=== PATIENT | male | born 1940 | race Asian ===

== ENCOUNTER 2017-04-14 14:11 | Emergency (ER) | payer MEDICARE, OTHER ==
[2017-04-14 14:20] VITALS: BMI 25.7
--- NOTE | 2017-04-14 14:20 | PDOC ---
Rapid Medical Evaluation Time Seen by Provider: 04/14/17 14:15 Medical Evaluation: 04/14/17 14:16 I have performed a brief in-person evaluation of this patient. The patient presents with a chief complaint of: Cough with SOB x 1 month, not getting better with OTC meds. Denies any pmhx. No tob hx Pertinent physical exam findings:Sating 94% on RA well piper w/ clear chest/lungs I have ordered the following:Labs, CXR and EKG The patient will proceed to the ED for further evaluation.
--- NOTE | 2017-04-14 14:29 | PDOC ---
History of Present Illness - General Chief Complaint: Respiratory Stated Complaint: Blood Pressure Problem Time Seen by Provider: 04/14/17 14:15 History Source: Patient - History of Present Illness Initial Comments: 04/14/17 15:09 Patient is a 76 y.o. Grenadian speaking, LEP male with no reported PMH who presents to the ED today c/o 1 month h/o subjective fever, productive (whitish sputum) cough, pleuritic chest pain, rhinorhea as well as sore throat. Patient states he has tried OTC meds to some relief however the symptoms persisted. Patient denies any recent travel, medication changes or sick contacts. NKDA Surgical: Cholecystectomy Social: denies cigarettes, alcohol, recreational drugs PMD: None Past History - Past Medical History Allergies/Adverse Reactions: Allergies Allergy/AdvReac Type Severity Reaction Status Date / Time Penicillins Allergy Rash Verified 04/14/17 14:20 Home Medications: Ambulatory Orders Azithromycin [Zithromax 250mg Tablets -] 250 mg PO DAILY 4 Days #4 tablet COPD: No Other medical history: NONE - Surgical History Cholecystectomy: Yes - Suicide/Smoking/Psychosocial Hx Smoking History: Never smoked Have you smoked in the past 12 months: Yes Information on smoking cessation initiated: No Hx Alcohol Use: No Drug/Substance Use Hx: No Substance Use Type: None Review of Systems - Review of Systems Constitutional: Yes: Chills, Fever Respiratory: Yes: Cough (productive whitish sputum) Cardiac (ROS): Yes: Chest Tightness. No: Lightheadedness, Palpitations ABD/GI: No: Constipated, Diarrhea, Nausea, Vomiting : No: Burning, Dysuria All Other Systems: Reviewed and Negative *Physical Exam - Vital Signs Last Vital Signs Temp Pulse Resp BP Pulse Ox 98.2 F 75 20 157/96 94 L 04/14/17 14:14 04/14/17 14:14 04/14/17 14:14 04/14/17 14:14 04/14/17 14:14 - Physical Exam General Appearance: Yes: Nourished, Appropriately Dressed HEENT: positive: EOMI, YAMILKA. negative: Pharyngeal Erythema, Tonsillar Exudate, Tonsillar Erythema Neck: positive: Trachea midline, Supple Respiratory/Chest: positive: Lungs Clear, Normal Breath Sounds Cardiovascular: positive: S1, S2. negative: Edema, JVD, Murmur Gastrointestinal/Abdominal: positive: Normal Bowel Sounds, Soft. negative: Tenderness, Hernia, Mass, Hepatomegaly Extremity: positive: Normal Capillary Refill, Normal Inspection Integumentary: positive: Normal Color, Dry, Warm Neurologic: positive: marketing director II-XII NML intact, Fully Oriented, Alert ED Treatment Course - LABORATORY CBC & Chemistry Diagram: 04/14/17 14:55 04/14/17 14:55 Medical Decision Making - Medical Decision Making 04/14/17 15:39 Patient is a 76 y.o. male who presents with 1 month h/o viral URI symptoms and intermittently productive cough. Initial DDx is for pneumonia (however no self- reported dyspnea) vs. Influenza vs. URI; low clinical suspicion for TB given no incarceration, no h/o of night sweats, weight loss PLAN 1. CBC, CMP 2. Strep Pharyngitis, Influenza 3. CXR 04/14/17 15:40 Influenza, Strep negative.Wet read of CXR shows possible soft tissue L sided mass at the level of the diaphragm as well as possible L parasternal soft tissue mass. Given patient's h/o 1 month SiSx as well childhood h/o possible international exposures (patient born in [place], lived in [facility] and [place] emigrating to the [place] in ) CT Scan ordered to evaluated for possible malignancy. On repeat exam, patient notes that he has not smoked since 1986, however previously smoked 2 ppd/5 years. 04/14/17 19:20 CT Scan shows COPD changes as well as scarring and possible nodule 1.2 cm width on L side (noted to be possible soft tissue mass on CXR). Patient to be treated for mild COPD exacerbation (5 Days Azithromycin, no steroids) and referred to Pulmonology (Dr. Shen) and PCP ([facility], Dr. Modesto Stafford) . Patient and patient's @ bedside counseled on proper follow-up care in Gren[place]. At time of discharge patient improved, ambulatory and understood discharge instructions. *DC/Admit/Observation/Transfer Diagnosis at time of Disposition: COPD exacerbation - Discharge Dispostion Disposition: HOME Condition at time of disposition: Good Admit: No - Prescriptions Prescriptions: Azithromycin [Zithromax 250mg Tablets -] 250 mg PO DAILY 4 Days #4 tablet - Referrals Referrals: Modesto Stafford MD [Staff Physician] - Dar Shen MD [Staff Physician] - - Patient Instructions Printed Discharge Instructions: DI for Chronic Obstructive Pulmonary Disease Additional Instructions: Please make an appointment for follow-up evaluation both with Dr. Rivera Salvador for primary care as well as a pulmonary lung doctor, Dr. Shen. Please return to the Emergency Department for any worsening or concerning symptoms. - Post Discharge Activity
[2017-04-14 15:22] LABS: BASOPHIL 0.8 % (0-2.0); EOSINOPHIL 1.1 % (0-4.5); MCH 31.6 pg (25.7-33.7); MCHC 33.2 g/dl (32.0-35.9); MEAN CELL VOLUME 95.3 fl (80-96); MEAN PLT VOLUME 8.3 fl (7.5-11.1); NEUTROPHILS 61.4 % (42.8-82.8); PLATELET COUNT 223 K/MM3 (134-434); RDW 12.9 % (11.9-15.9); WHITE BLOOD COUNT 8.3 K/mm3 (4.0-10.0)
[2017-04-14 15:31] LABS: ALBUMIN 3.4 g/dl (3.4-5.0); ANION GAP 8 (8-16); CALCIUM 8.4 mg/dL (8.5-10.1); CO2 26 mmol/L (21-32); CREATININE 1.1 mg/dL (0.7-1.3); GLUCOSE,RANDOM 123 mg/dL (74-106); SGOT/AST 13 U/L (15-37); SGPT/ALT 22 U/L (12-78)
[2017-04-14 15:35] LABS: ALK PHOS 85 U/L (45-117); BILIRUBIN,TOTAL 0.5 mg/dL (0.2-1.0); CPK 65 IU/L (39-308); TOT PROT 7.8 g/dl (6.4-8.2); TROPONIN I < 0.02 ng/ml (0.00-0.05)
--- NOTE | 2017-04-14 15:45 | PDOC ---
Attending Attestation - HPI HPI: 04/14/17 16:41 Pt is a 76 yo M with no PMHx who presents to the ED with dyspnea and cough for the past month. Patient reports URI symptoms including clear rhinorhea, sore throat and subjective fevers. - Medical Decision Making 04/14/17 16:44 Documentation prepared by Keren Freeman, acting as medical office technologist for Brendan Damon MD <Keren Freeman - Last Filed: 04/14/17 18:29> - Resident Resident Name: Triny Iniguez - ED Attending Attestation I have performed the following: I have examined & evaluated the patient, The case was reviewed & discussed with the resident, I agree w/resident's findings & plan, Exceptions are as noted - Physicial Exam PE: 04/14/17 19:19 Patient is awake and alert, afebrile, with oxygen saturation of 98% room air ( initial pulse oximeter was 94 in triage); nc, atr cta rrr No lower extremity edema - Medical Decision Making 04/14/17 19:19 Patient is a well-appearing 76-year-old male with history of smoking who presents to the ER with with intermittent cough productive of white sputum for the past month, nasal congestion. CT of chest shows bibasilar scarring, centrilobular emphysema, and the a pulmonary nodule measuring 1.2 cm which will require follow-up. We'll administer Zithromax for mild COPD exacerbation that does not require steroids at this time. Will discharge with pulmonary follow-up for evaluation of the pulmonary nodule. <Brendan Damon - Last Filed: 04/14/17 19:21>
[2017-04-14 16:46] LABS: URINE APPEARANCE CLEAR; URINE BILIRUBIN NEGATIVE (NEGATIVE); URINE BLOOD 1+ (NEGATIVE); URINE COLOR COLORLESS; URINE GLUCOSE (UA) NEGATIVE (NEGATIVE); URINE KETONE NEGATIVE (NEGATIVE); URINE NITRITE NEGATIVE (NEGATIVE); URINE PROTEIN NEGATIVE (NEGATIVE); URINE UROBILINOGEN NEGATIVE mg/dL (0.2-1.0)
[2017-04-14 16:58] LABS: URINE RBC < 1
[2017-04-14] MEDS ORDERED: AZITHROMYCIN 250 MG TABLET PO ONE (19:17)
[2017-04-14] MEDS ORDERED: AZITHROMYCIN 500 MG TABLET ONE (19:29)
[2017-04-14 19:54] VITALS: BP 146/95; PULSE 85; TEMP 98
[2017-04-14 21:43] LABS: URINE LEUK ESTERASE Negative (NEGATIVE)
--- NOTE | 2017-04-15 12:24 | EKG ---
Test Reason : Blood Pressure : / mmHG Vent. Rate : 067 BPM Atrial Rate : 067 BPM P-R Int : 166 ms QRS Dur : 084 ms QT Int : 376 ms P-R-T Axes : 038 001 042 degrees QTc Int : 397 ms NORMAL SINUS RHYTHM NORMAL ECG WHEN COMPARED WITH ECG OF 26-OCT-2006 17:51, NO SIGNIFICANT CHANGE WAS FOUND Confirmed by CYNTHIA DYKES MD ([id number]) on 04/15/2017 12:24:24 PM Referred By: Confirmed By:CYNTHIA DYKES MD
== END 2017-04-14 19:54 | disposition home or self-care (01) ==
LOC: JER 14:11
DX: F17.210 Nicotine dependence, cigarettes, uncomplicated (principal)
CPT/HCPCS: 36415; 71020-TC; 71250-TC; 80053; 81003; 81015; 82550; 84484; 85025; 87070; 87430; 87804; 93005; 93010; 99284-25

== ENCOUNTER 2017-08-28 14:05 | Emergency (ER) | payer MEDICARE ==
[2017-08-28 14:15] VITALS: BP 137/72; PULSE 80; TEMP 98.1; BMI 26.1
[2017-08-28] MEDS ORDERED: ALBUTEROL SO4 2.5/IPRATROPIUM 0.5 INH SOL 3 ML VIAL.NEB. NEB ONE ×2 (14:49→14:50)
--- NOTE | 2017-08-28 14:59 | PDOC ---
History of Present Illness - General Chief Complaint: Respiratory Stated Complaint: COLD SYMPTOMS Time Seen by Provider: 08/28/17 14:38 History Source: Patient - History of Present Illness Initial Comments: 08/28/17 14:52 Patient is a 76M with a history of cholecystectomy here today complaining of 1.5 weeks of cough, congestion, and runny nose. He states that he has some chest pain and shortness of breath that are caused by the cough. He endorses chills, denies fevers. He endorses diffuse tingling pain along his entire body. Denies history of blood clots, leg swelling. He says that he has a sick contact in his household. He states that he both got a flu shot and pneumonia shot this year. PCP: Dr Perla Duncan. Past History - Past Medical History Allergies/Adverse Reactions: Allergies Allergy/AdvReac Type Severity Reaction Status Date / Time Penicillins Allergy Rash Verified 08/28/17 14:15 Home Medications: Ambulatory Orders Azithromycin [Zithromax 250mg Tablets -] 250 mg PO DAILY 4 Days #4 tablet Albuterol Sulfate Inhaler - [Ventolin Hfa Inhaler -] 1 - 2 inh PO QID PRN #1 inhaler 08/28/17 Azithromycin [Zithromax 250mg Tablets -] 250 mg PO DAILY #4 tablet 08/28/17 predniSONE [Deltasone -] 40 mg PO DAILY #3 tablet 08/28/17 COPD: No - Surgical History Cholecystectomy: Yes - Suicide/Smoking/Psychosocial Hx Smoking History: Never smoked Have you smoked in the past 12 months: Yes Hx Alcohol Use: No Drug/Substance Use Hx: No Substance Use Type: None Review of Systems - Review of Systems Comments:: 08/28/17 14:56 GENERAL/CONSTITUTIONAL: No fever. Positive for chills. HEAD, EYES, EARS, NOSE AND THROAT: No change in vision. No sore throat. CARDIOVASCULAR: Positive for chest pain and shortness of breath RESPIRATORY: Positive for cough, negative for hemoptysis. GASTROINTESTINAL: No nausea, vomiting, diarrhea or constipation. GENITOURINARY: No dysuria, frequency, or change in urination. MUSCULOSKELETAL: Positive for bodyaches. No neck or back pain. SKIN: No rash NEUROLOGIC: No headache, vertigo, loss of consciousness, or change in strength/ sensation. ENDOCRINE: No increased thirst. No abnormal weight change HEMATOLOGIC/LYMPHATIC: No anemia, easy bleeding, or history of blood clots. ALLERGIC/IMMUNOLOGIC: No hives or skin allergy. *Physical Exam - Vital Signs Last Vital Signs Temp Pulse Resp BP Pulse Ox 98.1 F 80 18 137/72 99 08/28/17 14:12 08/28/17 14:12 08/28/17 14:12 08/28/17 14:12 08/28/17 14:12 - Physical Exam Comments: 08/28/17 14:57 GENERAL: Awake, alert, and fully oriented, in no acute distress HEAD: No signs of trauma, normocephalic, atraumatic EYES: PERRLA, EOMI, sclera anicteric, conjunctiva clear ENT: Auricles normal inspection, hearing grossly normal, nares patent, oropharynx clear without exudates. Moist mucosa NECK: Normal ROM, supple, no lymphadenopathy, JVD, or masses LUNGS: No distress, speaks full sentences, scattered wheezes bilaterally HEART: Regular rate and rhythm, normal S1 and S2, no murmurs, rubs or gallops, peripheral pulses normal and equal bilaterally. ABDOMEN: Soft, nontender, normoactive bowel sounds. No guarding, no rebound. No masses EXTREMITIES: Normal inspection, Normal range of motion, no edema. No clubbing or cyanosis. NEUROLOGICAL: Cranial nerves II through XII grossly intact. Normal speech, normal gait, no focal sensorimotor deficits SKIN: Warm, Dry, normal turgor, no rashes or lesions noted. ED Treatment Course - LABORATORY CBC & Chemistry Diagram: 08/28/17 15:00 08/28/17 14:49 - RADIOLOGY Radiology Studies Ordered: Category Date Time Status CHEST X-RAY PORTABLE* [RAD] Stat Radiology 08/28/17 14:49 Ordered Medical Decision Making - Medical Decision Making 08/28/17 14:59 Patient is 76M with no significant medical history here today complaining of congestion, cough, chest pain. Vital signs stable and normal. Record review shows CT chest with centrilobar emphysema. Bilateral wheezing on exam. DDx includes, but is not limited to: bronchits, copd exacerbation, pneumonia, acs, arrhythmia. Will evaluate with cbc, cmp, pt/inr, mg, trop, ekg, cxr. EKG shows normal sinus rhythm with rate of 84. No st elevation/depression. No significant t wave abnormalities. Q waves in III and aVF. No significant t wave abnormalities. 08/28/17 16:07 CXR shows chronic inflammation at the bases, likely atelectasis. Laboratory Tests 08/28/17 08/28/17 08/28/17 14:49 14:49 15:00 WBC 4.7 D Hgb 14.1 Hct 41.8 Plt Count 172 D INR 0.98 BUN 17 D Creatinine 1.1 Troponin I < 0.02 CBC normal. INR normal. CMP reassuring. Troponin undetectable. Believe patient has bronchitis, will treat with azithro and prednisone. Will send home with albuterol inhaler as well. Will instruct to follow up with PCP. Patient moving air better on exam. Flu negative *DC/Admit/Observation/Transfer Diagnosis at time of Disposition: Bronchitis - Discharge Dispostion Disposition: HOME Condition at time of disposition: Good Admit: No - Prescriptions Prescriptions: Albuterol Sulfate Inhaler - [Ventolin Hfa Inhaler -] 1 - 2 inh PO QID PRN #1 inhaler PRN Reason: Shortness Of Breath Azithromycin [Zithromax 250mg Tablets -] 250 mg PO DAILY #4 tablet predniSONE [Deltasone -] 40 mg PO DAILY #3 tablet - Referrals Referrals: Perla Stone MD [Primary Care Provider] - - Patient Instructions Printed Discharge Instructions: DI for Acute Bronchitis Additional Instructions: You were seen in the ED today and found to have bronchitis. Please return if you have any new, worsening or concerning symptoms. You were given the first dose of your antibiotic and steroid today in the ER. Your next doses will be due to take tomorrow. Please picker tender helper these medications from your pharmacy. You were sent home today with a prescription for an inhaler. Please use this if you start feeling short of breath. If this does alleviate your symptoms, please return to the Emergency Department. Print Language: VIET[place]ESE - Post Discharge Activity
--- NOTE | 2017-08-28 15:05 | PDOC ---
Attending Attestation - Resident Resident Name: GabewaleToro - ED Attending Attestation I have performed the following: I have examined & evaluated the patient, The case was reviewed & discussed with the resident, I agree w/resident's findings & plan, Exceptions are as noted - HPI HPI: 08/28/17 15:04 76 yo M presenting to the ER with upper respiratory complaints Patient reports he has no past medical history. He does have prior CT findings of COPD. Patient reports cough, shortness of breath. (+) Sputum production. No fever (+) chills No chest pain. 08/28/17 16:41 - Physicial Exam PE: 08/28/17 16:41 Please note: exam is s/p neb x 1 GENERAL: The patient is in no acute distress. HEAD: Normal EYES: PERRLA, EOMI, sclera anicteric, conjunctiva clear. ENT: Ears normal, nares patent, oropharynx clear without exudates. Moist mucous membranes. NECK: Normal range of motion, supple without lymphadenopathy, JVD, or masses. LUNGS: Breath sounds equal, clear to auscultation bilaterally HEART:Regular rate and rhythm, normal S1 and S2 without murmur, rub or gallop. ABDOMEN: Soft, nontender, normoactive bowel sounds. EXTREMITIES: Normal range of motion, no edema. NEUROLOGICAL: Cranial nerves II through XII grossly intact. Normal speech. No focal neurological deficits. - Medical Decision Making 08/28/17 16:42 Laboratory Tests 08/28/17 08/28/17 08/28/17 14:49 14:49 15:00 WBC 4.7 D Hgb 14.1 Hct 41.8 Plt Count 172 D Neutrophils % 42.4 L D Lymphocytes % 43.0 H D INR 0.98 Alkaline Phosphatase 69 Troponin I < 0.02 Chest x-ray preliminarily read by me reveals right basilar infiltrate. Will discharge to home on: Azithromycin, prednisone, albuterol. Patient to follow up with primary care physician. Clinical impression: COPD exacerbation, initial presentation Bronchitis, and initial presentation Upper respiratory infection, initial presentation
[2017-08-28 15:12] LABS: BASO % 0.6 % (0-2.0); EOS % 0.7 % (0-4.5); HEMATOCRIT 41.8 % (35.4-49); HEMOGLOBIN 14.1 GM/dL (11.7-16.9); MCH 32.6 pg (25.7-33.7); MCHC 33.8 g/dl (32.0-35.9); MEAN CELL VOLUME 96.4 fl (80-96); MEAN PLT VOLUME 9.1 fl (7.5-11.1); MONO % 13.3 % (3.8-10.2); NEUT % 42.4 % (42.8-82.8); PLATELET COUNT 172 K/MM3 (134-434); RBC 4.34 M/mm3 (4.00-5.60); RDW 13.1 % (11.9-15.9); WHITE BLOOD COUNT 4.7 K/mm3 (4.0-10.0)
[2017-08-28 15:44] LABS: INR 0.98 (0.82-1.09); PROTHROMBIN TIME (PATIENT) 11.1 SEC (9.98-11.88)
[2017-08-28 15:51] LABS: ALBUMIN 3.4 g/dl (3.4-5.0); ANION GAP 7 (8-16); BILIRUBIN,TOTAL 0.4 mg/dL (0.2-1.0); BLOOD UREA NITROGEN 17 mg/dL (7-18); CHLORIDE 106 mmol/L (98-107); CO2 24 mmol/L (21-32); CREATININE 1.1 mg/dL (0.7-1.3); GLUCOSE,RANDOM 88 mg/dL (74-106); SGPT/ALT 27 U/L (12-78); SODIUM 137 mmol/L (136-145)
[2017-08-28 15:54] LABS: ALK PHOS 69 U/L (45-117); TOT PROT 7.4 g/dl (6.4-8.2)
[2017-08-28 15:55] LABS: MAGNESIUM 2.2 mg/dL (1.8-2.4); POTASSIUM 4.1 mmol/L (3.5-5.1); SGOT/AST 24 U/L (15-37)
[2017-08-28] MEDS ORDERED: AZITHROMYCIN 500 MG TABLET PO ONE (16:10)
[2017-08-28] MEDS ORDERED: predniSONE 20 MG TABLET (UD) PO ONE (16:13)
[2017-08-28] MEDS ORDERED: AZITHROMYCIN 500 MG TABLET ONE (16:15)
[2017-08-28] MEDS ORDERED: predniSONE 20 MG TABLET (UD) ONE (16:25)
--- NOTE | 2017-08-29 16:13 | EKG ---
Test Reason : Blood Pressure : / mmHG Vent. Rate : 084 BPM Atrial Rate : 084 BPM P-R Int : 160 ms QRS Dur : 078 ms QT Int : 368 ms P-R-T Axes : 039 -09 036 degrees QTc Int : 434 ms NORMAL SINUS RHYTHM INFERIOR INFARCT , AGE UNDETERMINED NONSPECIFIC ST ABNORMALITY ABNORMAL ECG Confirmed by MD EMILY, CARIDAD ([id number]) on 08/29/2017 4:13:07 PM Referred By: Confirmed By:CARIDAD DIAZ MD
== END 2017-08-28 16:25 | disposition home or self-care (01) ==
LOC: JER 14:05
PROC: 3E0F7GC Introduction of Other Therapeutic Substance into Respiratory Tract, Via Natural or Artificial Opening (ICD-10-PCS; principal; 2017-08-28)
DX: J40 Bronchitis, not specified as acute or chronic (principal); Z90.49 Acquired absence of other specified parts of digestive tract
CPT/HCPCS: 36415; 71045-TC-FY; 80053; 82550; 83735; 84484; 85025; 85610; 87804; 93005; 93010; 94640; 99283-25

== ENCOUNTER 2019-05-09 14:53 | Emergency (ER) | payer MEDICARE, OTHER ==
[2019-05-09 15:26] VITALS: BMI 30.9
--- NOTE | 2019-05-09 15:43 | PDOC ---
History of Present Illness - General Chief Complaint: Weakness Stated Complaint: Blood Pressure Problem Time Seen by Provider: 05/09/19 15:14 History Source: Patient ( ) Exam Limitations: Language Barrier (Health Services Coordinator #[id number]) - History of Present Illness Initial Comments: 05/09/19 15:59 78M with no PMH (on Spiriva) who presents to the ER after having an episode of weakness and lightheadedness. The patient states that he began to feel generalized weakness and felt like his legs were giving out. He sat on the toilet and had 2 episodes of nonbloody, watery diarrhea. He then states that he felt very lightheaded and lost his vision for 20-30 seconds, felt very lightheaded, and was unable to stand up. During this time he denies any chest tightness, shortness of breath, nausea, vomiting, numbness, or tingling. He states that he's been "fighting a cold" for the last week. He denies any current symptoms and states that all of his symptoms had resolved by the time EMS arrived. Past History - Past Medical History Allergies/Adverse Reactions: Allergies Allergy/AdvReac Type Severity Reaction Status Date / Time Penicillins Allergy Rash Verified 05/09/19 15:28 Asthma: Yes COPD: No - Surgical History Cholecystectomy: Yes - Psycho Social/Smoking Cessation Hx Smoking History: Never smoked Have you smoked in the past 12 months: No Information on smoking cessation initiated: No Hx Alcohol Use: No Drug/Substance Use Hx: No Substance Use Type: None Review of Systems - Review of Systems Able to Perform ROS?: Yes Comments:: 05/09/19 16:09 GENERAL/CONSTITUTIONAL: + for weakness. No fever or chills. HEAD, EYES, EARS, NOSE AND THROAT: No change in vision. No ear pain or discharge. No sore throat. CARDIOVASCULAR: + for lightheadedness. No chest pain or palpitations. RESPIRATORY: No cough, wheezing, shortness of breath, or hemoptysis. GASTROINTESTINAL: No abdominal pain, nausea, vomiting, diarrhea, or constipation. GENITOURINARY: No dysuria, frequency, hematuria, or change in urination. MUSCULOSKELETAL: No joint or muscle swelling or pain. No neck or back pain. SKIN: No rash or lesions. NEUROLOGIC: + for loss of vision. No headache, numbness, tingling, focal weakness, loss of consciousness, or change in strength/sensation. Is the patient limited Tuvaluan proficient: No *Physical Exam - Vital Signs Last Vital Signs Temp Pulse Resp BP Pulse Ox 98.7 F 73 17 111/55 L 90 L 05/09/19 15:16 05/09/19 15:16 05/09/19 15:16 05/09/19 15:16 05/09/19 15:16 - Physical Exam 05/09/19 16:12 GENERAL: Well developed, well nourished. Awake and alert. No acute distress. HEENT: Normocephalic, atraumatic. Hearing grossly normal. Moist mucous membranes. PERRLA, EOMI. No conjunctival pallor. Sclera are non-icteric. NECK: Supple. Full ROM. No JVD. Carotid pulses 2+ and symmetric, without bruits. No thyromegaly. No lymphadenopathy. CARDIOVASCULAR: Regular rate and rhythm. No murmurs, rubs, or gallops. PULMONARY: No evidence of respiratory distress. Lungs clear to auscultation bilaterally. No wheezing, rales or rhonchi. ABDOMINAL: Soft. Non-tender. Non-distended. No rebound or guarding. MUSCULOSKELETAL: Normal range of motion at all joints. No bony deformities or tenderness. EXTREMITIES: No cyanosis. No clubbing. No edema. No calf tenderness or swelling. SKIN: Warm and dry. Normal capillary refill. No rashes. No jaundice. NEUROLOGICAL: Alert, awake, appropriate. Cranial nerves 2-12 intact. No deficits to light touch and temperature in face, upper extremities and lower extremities. 5/5 strength in deltoids, biceps, triceps, quadriceps, hamstrings, and gastrocnemius. Normal speech. Gait is normal without ataxia. PSYCHIATRIC: Cooperative. Good eye contact. Appropriate mood and affect. ED Treatment Course - LABORATORY CBC & Chemistry Diagram: 05/09/19 15:40 05/09/19 15:40 - RADIOLOGY Radiology Studies Ordered: Category Date Time Status CHEST X-RAY PORTABLE* [RAD] Stat Radiology 05/09/19 15:14 Ordered Medical Decision Making - Medical Decision Making 05/09/19 16:12 78M with no PMH who presents to the ER with possible syncope vs near syncope. EKG shows trigeminy w/o priors. Will obtain labs, CXR, and admit. Pt endorsed to Dr. Perla Stone for admission. Discharge - Discharge Information Problems reviewed: Yes Clinical Impression/Diagnosis: Lightheaded, Weakness Condition: Guarded - Admission Yes - Follow up/Referral Referrals: Perla Stone MD [Primary Care Provider] - - Patient Discharge Instructions - Post Discharge Activity
[2019-05-09 15:56] LABS: BASO % 0.6 % (0-2.0); EOS % 1.5 % (0-4.5); HEMATOCRIT 38.4 % (35.4-49); HEMOGLOBIN 12.4 GM/dL (11.7-16.9); LYMPH % 15.9 % (8-40); MCH 31.9 pg (25.7-33.7); MCHC 32.4 g/dl (32.0-35.9); MEAN CELL VOLUME 98.6 fl (80-96); MONO % 4.3 % (3.8-10.2); NEUT % 77.7 % (42.8-82.8); PLATELET COUNT 191 K/MM3 (134-434); RBC 3.89 M/mm3 (4.00-5.60); RDW 13.4 % (11.9-15.9); WHITE BLOOD COUNT 9.8 K/mm3 (4.0-10.0)
--- NOTE | 2019-05-09 16:03 | PDOC ---
Attending Attestation - Resident Resident Name: AlexdarylRobby - ED Attending Attestation I have performed the following: I have examined & evaluated the patient, The case was reviewed & discussed with the resident, I agree w/resident's findings & plan - HPI HPI: 05/09/19 15:58 Healthy 78-year-old male high functioning with no significant past medical history presents brought in by ambulance with after episode of lightheadedness and near syncope. Patient was in his usual state of health, had returned from being out with his daughter for most of the day, was cooking then felt sudden onset of generalized lightheadedness and generalized weakness with some nausea, denies any chest pain or palpitations or abdominal pain. The patient sat down but the symptoms persisted for about 5 minutes, which prompted EMS activation. During the episode, states patient was pale and had low blood pressure, upon EMS arrival patient was asymptomatic with normal blood pressure, but irregular heartbeat on monitoring. Patient now completely asymptomatic, denies any recent exertional intolerance, denies any infectious symptoms (other than mild URI for which he took cepacol drops) or dehydration symptoms, denies any history of lightheadedness or syncope. - Physicial Exam PE: 05/09/19 15:59 Vitals as noted, heart rate in the 70s with normal blood pressure, O2 sat 97% on room air Patient is alert seated in stretcher, speaking full sentences, no acute distress Neurological exam is nonfocal Heart is regular to auscultation at this time, no audible murmur Lungs are clear Abdomen benign No edema - Medical Decision Making 05/09/19 16:00 78-year-old male with sudden onset lightheadedness and near syncope, resolved. Hemodynamically stable here but with trigeminal rhythm in route with EMS, denies any specific cardiopulmonary or neurological complaints. Presentation could be consistent with primary arrhythmia versus ACS versus vasovagal episode. There was confounding history of patient having this episode following diarrhea, however he denied any diarrhea or abdominal complaints on my history. Placed on monitor, stat EKG noted sinus rhythm with PVCs in trigeminal pattern, in sinus rhythm on my examination on monitor IV fluids Chest x-ray Admit for tele/echo - PCP Dr. Chela Stone Heart Score/ECG Review #1 ECG reviewed & interpreted by me at: 15:03 General ECG Interpretation: Sinus Rhythm (with PVCs), Normal Rate (75), Normal Intervals (qtc 446), No acute ischemic changes
[2019-05-09 16:11] LABS: INR 1.02 (0.83-1.09)
[2019-05-09 16:13] LABS: ACTIVATED PTT 26.1 SECONDS (25.2-36.5)
[2019-05-09 16:48] LABS: ALBUMIN 3.2 g/dl (3.4-5.0); BILIRUBIN,TOTAL 0.8 mg/dL (0.2-1); BLOOD UREA NITROGEN 16.6 mg/dL (7-18); CALCIUM 8.3 mg/dL (8.5-10.1); CREATININE 1.3 mg/dL (0.55-1.3); POTASSIUM 4.2 mmol/L (3.5-5.1); TOT PROT 6.4 g/dl (6.4-8.2)
[2019-05-09] MEDS: SODIUM CHLORIDE 1,000 ML IV SCH (19:48)
[2019-05-10] MEDS ORDERED: LEVOTHYROXINE NA 25 MCG TABLET (FP) ONE (06:57)
[2019-05-10 07:39] LABS: BASO % 0.6 % (0-2.0); EOS % 4.8 % (0-4.5); HEMATOCRIT 37.3 % (35.4-49); HEMOGLOBIN 12.6 GM/dL (11.7-16.9); LYMPH % 32.8 % (8-40); MCH 32.8 pg (25.7-33.7); MCHC 33.7 g/dl (32.0-35.9); MEAN CELL VOLUME 97.2 fl (80-96); MEAN PLT VOLUME 8.9 fl (7.5-11.1); MONO % 7.1 % (3.8-10.2); NEUT % 54.7 % (42.8-82.8); PLATELET COUNT 207 K/MM3 (134-434); RBC 3.84 M/mm3 (4.00-5.60); RDW 13.3 % (11.9-15.9); WHITE BLOOD COUNT 5.8 K/mm3 (4.0-10.0)
[2019-05-10 08:20] LABS: ALBUMIN 3.2 g/dl (3.4-5.0); BILIRUBIN,TOTAL 0.7 mg/dL (0.2-1); BLOOD UREA NITROGEN 17.4 mg/dL (7-18); CALCIUM 8.4 mg/dL (8.5-10.1); CREATININE 1.2 mg/dL (0.55-1.3); POTASSIUM 4.2 mmol/L (3.5-5.1); TOT PROT 6.5 g/dl (6.4-8.2)
--- NOTE | 2019-05-10 09:10 | CON.CARD ---
Consult Consult Specialty:: cardio - History of Present Illness Chief Complaint: near syncope History of Present Illness: 78-year-old male here with lightheadedness. no significant past medical history. had an episode of lightheadedness and near syncope. Patient returned from being out with his daughter for most of the day, was cooking then felt sudden onset of generalized lightheadedness and generalized weakness with some nausea. The patient sat down but the symptoms persisted for about 5 minutes, which prompted EMS activation. During the episode, states patient was pale and reportedly measured low blood pressure. upon EMS arrival patient was asymptomatic with normal blood pressure, but irregular heartbeat on monitoring. pt dutch is good: states he was cooking at around 2:30 pm yest. HAD NOT EATEN ANYTHING ALL DAY UP UNTIL THEN. began to feel very dizzy with feeling of coldness thru his body. no other associated neuro deficits like weakness/numbness, impaired speech. no cp, sob, palpitations associated. walks ad gallo at baseline including frequent stairs--no cp or sob room air sat 90% in ER, normal BP/HR. CT chest no PE, + moderate copd changes carotid dopplers non-obstructive, CT head no acute pathology labs unremarkable - Alcohol/Substance Use Hx Alcohol Use: No - Smoking History Smoking history: Never smoked Have you smoked in the past 12 months: No Home Medications - Allergies Allergies/Adverse Reactions: Allergies Allergy/AdvReac Type Severity Reaction Status Date / Time Penicillins Allergy Rash Verified 05/09/19 15:28 - Home Medications Home Medications: Ambulatory Orders Tiotropium [place] [Spiriva] 18 mcg IH DAILY 05/09/19 Family Medical History Family History: Denies (no known cmp) Review of Systems - Review of Systems Constitutional: denies: Chills, Fever Eyes: denies: Eye Pain HENT: denies: Nasal Congestion Neck: denies: Stiffness Cardiovascular: denies: Palpitations Respiratory: denies: Orthopnea, PND Gastrointestinal: denies: Diarrhea, Rectal Bleeding Genitourinary: denies: Burning, Hematuria Musculoskeletal: denies: Muscle Pain Integumentary: denies: Rash Neurological: denies: Numbness, Seizure, Syncope Endocrine: denies: Excessive Sweating Hematology/Lymphatic: denies: Excessive Bleeding Vital Signs: Vital Signs Temperature 98.1 F 05/10/19 07:30 Pulse Rate 55 L 05/10/19 07:30 Respiratory Rate 17 05/10/19 07:30 Blood Pressure 148/80 05/10/19 07:30 O2 Sat by Pulse Oximetry (%) 96 05/10/19 07:30 Constitutional: Yes: Well Nourished, No Distress Eyes: No: Sclera Icterus HENT: No: Nasal Congestion Neck: No: Decreased ROM Respiratory: Yes: CTA Bilaterally. No: Accessory Muscle Use, Rales, Wheezes Gastrointestinal: Yes: Normal Bowel Sounds. No: Distention, Hepatomegaly, Palpable Mass, Tenderness Cardiovascular: Yes: Regular Rate and Rhythm JVD: No Carotid Bruit: No PMI: Non-Displaced Heart Sounds: Yes: S1, S2. No: Gallop Murmur: No: Systolic Murmur, Diastolic Murmur Musculoskeletal: Yes: Other (No kyphosis) Extremities: No: Cool, Cyanosis Edema: No Peripheral Pulses: 2+ Left Carotid, 2+ Right Carotid, 2+ Left Doralis Pedis, 2+ Right Dorsalis Pedis Integumentary: No: Jaundice Neurological: Yes: Alert, Oriented (x3) Psychiatric: No: Agitated - Other Data Labs, Other Data: CBC, BMP 05/10/19 05:40 05/10/19 05:40 INR, PTT INR 1.02 (0.83-1.09) 05/09/19 15:40 Troponin, BNP 05/09/19 15:40 Troponin I < 0.02 Troponin, BNP 05/09/19 15:40 Troponin I < 0.02 Assessment/Plan ECG: NSR/ventricular trigeminy, normal intervals, no q waves or ST-T abnormalities. CT chest: no acute pathology tele in ER: NSR, PVCs. no VT/bradyarrhythmia near-syncope: -history suggestive of vasovagal episode (fasting all day until events in mid afternoon, assctd wave of coldness thru body, with GI sx's). -no angina sx's. ECG non-ischemic. trop neg--f/u rpt value -PVCs on ECG noted--check echo, stress echo given pts age and RFs for cv disease -monitor tele while in ER -if echo and stress normal, then the dx of vasovagal event is nearly certain and he can be discharged with outpt f/u with us COPD: -findings on CT scan noted -sat borderline line on RA initially here -per primary team
--- NOTE | 2019-05-10 10:25 | EKG ---
Test Reason : Blood Pressure : / mmHG Vent. Rate : 075 BPM Atrial Rate : 075 BPM P-R Int : 158 ms QRS Dur : 084 ms QT Int : 400 ms P-R-T Axes : 092 007 026 degrees QTc Int : 446 ms POOR DATA QUALITY, INTERPRETATION MAY BE ADVERSELY AFFECTED SINUS RHYTHM WITH FREQUENT PREMATURE VENTRICULAR COMPLEXES OTHERWISE NORMAL ECG WHEN COMPARED WITH ECG OF 28-AUG-2017 15:23, PREMATURE VENTRICULAR COMPLEXES ARE NOW PRESENT Confirmed by NIKHIL DOTSON, ARAMIS ([id number]) on 05/10/2019 10:25:25 AM Referred By: Confirmed By:ARAMIS TEJEDA MD
--- NOTE | 2019-05-10 13:03 | ECHO ---
Name: LATA BRAND Exam:Adult Echocardiogram Study Date: 05/10/2019 09:51 AM Age: 78 yrs MMode/2D Measurements & Calculations IVSd: 0.95 cm Ao root diam: 3.4 cm LVIDd: 3.7 cm LA dimension: 2.9 cm LVIDs: 2.4 cm LVPWd: 1.2 cm LVPWs: 1.3 cm EDV(Teich): 60.0 ml ESV(Teich): 19.7 ml LVOT diam: 1.8 cm Doppler Measurements & Calculations MV E max venkat: 57.3 cm/sec Ao V2 max: 100.1 cm/sec MV A max venkat: 79.0 cm/sec Ao max P.0 mmHg MV E/A: 0.73 DEANDRA(V,D): 2.3 cm2 MV dec time: 0.14 sec LV V1 max P.0 mmHg PA V2 max: 79.3 cm/sec LV V1 max: 86.4 cm/sec PA max P.5 mmHg Med Peak E' Venkat: 5.5 cm/sec Med E/e': 10.4 Lat Peak E' Venkat: 6.0 cm/sec Lat E/e': 9.5 Procedure A two-dimensional transthoracic echocardiogram with color flow and Doppler was performed. Left Ventricle The left ventricular size, thickness and function are normal. The left ventricular ejection fraction is normal. E/A reversal consistent with but not diagnostic of poor LV compliance. The left ventricular w all motion is normal. Right Ventricle The right ventricle is normal in size and function. A moderator band is seen in the right ventricle. Atria Normal left and right atrial size and function. Mitral Valve There is mild mitral valve thickening. There is no mitral valve stenosis. There is trace to mild mitr al regurgitation. Tricuspid Valve There is mild tricuspid valve thickening. There is no tricuspid stenosis. There was insufficient TR d etected to calculate RV systolic pressure. Aortic Valve The aortic valve is normal in structure and function. No hemodynamically significant valvular aortic stenosis. No aortic regurgitation is present. Pulmonic Valve The pulmonic valve is not well visualized. Great Vessels The aortic root is normal size. Pericardium/Pleura There is no pericardial effusion. Interpretation Summary The left ventricular size, thickness and function are normal The left ventricular ejection fraction is normal. E/A reversal consistent with but not diagnostic of poor LV compliance The left ventricular wall motion is normal. A moderator band is seen in the right ventricle. The right ventricle is normal in size and function. There is trace to mild mitral regurgitation. There was insufficient TR detected to calculate RV systolic pressure. MD Micheal Mosley 05/10/2019 01:02 PM
--- NOTE | 2019-05-10 13:43 | HP ---
Admitting History and Physical - Primary Care Physician PCP: Perla Stone - Admission Chief Complaint: syncope History of Present Illness: ER HISTORY History of Present Illness Initial Comments: 05/09/19 15:59 78M with no PMH (on Spiriva) who presents to the ER after having an episode of weakness and lightheadedness. The patient states that he began to feel generalized weakness and felt like his legs were giving out. He sat on the toilet and had 2 episodes of nonbloody, watery diarrhea. He then states that he felt very lightheaded and lost his vision for 20-30 seconds, felt very lightheaded, and was unable to stand up. During this time he denies any chest tightness, shortness of breath, nausea, vomiting, numbness, or tingling. He states that he's been "fighting a cold" for the last week. He denies any current symptoms and states that all of his symptoms had resolved by the time EMS arrived. Pt examined by me today in ER He was fasting yesterday the entire day and in the afternoon felt lightheaded, weakness prior to eating at around 2:30pm [place] the need to go to the bathroom afterwards and had water bm Did not lose consciousness His is at bedside pt is seated up in chair No complaints now \\ History Source: Patient, Family Member Limitations to Obtaining History: No Limitations - Past Medical History Pulmonary: Yes: COPD (ex smoker) - Smoking History Smoking history: Never smoked Have you smoked in the past 12 months: No - Alcohol/Substance Use Hx Alcohol Use: No Home Medications - Allergies Allergies/Adverse Reactions: Allergies Allergy/AdvReac Type Severity Reaction Status Date / Time Penicillins Allergy Rash Verified 05/09/19 15:28 - Home Medications Home Medications: Ambulatory Orders Tiotropium [place] [Spiriva] 18 mcg IH DAILY 05/09/19 Review of Systems - Review of Systems Constitutional: denies: Chills, Fever Cardiovascular: denies: Chest Pain, Palpitations Respiratory: denies: Cough, SOB, SOB on Exertion, Wheezing Physical Examination Vital Signs: Vital Signs Temperature 98.1 F 05/10/19 07:30 Pulse Rate 55 L 05/10/19 07:30 Respiratory Rate 17 05/10/19 07:30 Blood Pressure 148/80 05/10/19 07:30 O2 Sat by Pulse Oximetry (%) 96 05/10/19 07:30 Constitutional: Yes: No Distress, Calm Cardiovascular: Yes: Regular Rate and Rhythm Respiratory: Yes: CTA Bilaterally Gastrointestinal: Yes: Normal Bowel Sounds, Soft. No: Tenderness Edema: No Neurological: Yes: Alert, Oriented Labs: CBC, BMP 05/10/19 05:40 05/10/19 05:40 Imaging - Results Chest X-ray: Image Reviewed (no infiltrate) Cat Scan: Report Reviewed (CT head- negative, ct chest-- no PE< copd+) Ultrasound: Report Reviewed (carotid doppler-- no stenosis) EKG: Image Reviewed (NSR) Problem List - Problems (1) Syncope Code(s): R55 - SYNCOPE AND COLLAPSE (2) Lightheaded Code(s): R42 - DIZZINESS AND GIDDINESS (3) Weakness Code(s): R53.1 - WEAKNESS (4) COPD (chronic obstructive pulmonary disease) Code(s): J44.9 - CHRONIC OBSTRUCTIVE PULMONARY DISEASE, UNSPECIFIED Assessment/Plan PLAN Syncope -- negative work up so far - cardiology eval noted -- on iv fluids -- stress echo ordered COPD -- clinically stable -- spiriva -- ct chest noted
--- NOTE | 2019-05-10 15:39 | ECHO ---
Name: KRUSE HO, LATA Exam:[facility] Stress Echocardiogram Study Date: 05/10/2019 02:03 PM Age: 78 yrs Stress Comments Normal resting electrocardiogram. Target Heart Rate was achieved (85% of maximum age-predicted heart rate). Exercise Echocardiogram There were stress-induced wall motion abnormalities observed. There is apical hypokinesis. Interpretation Summary This was an abnormal stress echocardiogram. Normal resting electrocardiogram. Target Heart Rate was achieved (85% of maximum age-predicted heart rate). There were stress-induced wall motion abnormalities observed. There is apical hypokinesis. This was an abnormal stress echocardiogram. Reading Physician: MD Micheal Mosley 05/10/2019 03:38 PM
[2019-05-10] MEDS: SODIUM CHLORIDE 1,000 ML IV SCH (20:29)
[2019-05-10] MEDS ORDERED: ATORVASTATIN CA 10 MG TABLET (FP) PO SCH (22:00)
[2019-05-10] MEDS ORDERED: METOPROLOL TARTRATE 25 MG TABLET (FP) PO SCH (22:00)
[2019-05-10 22:28] VITALS: BP 132/78; PULSE 66; TEMP 98.3
[2019-05-11] MEDS ORDERED: ASPIRIN COATED 81 MG TABLET.EC PO SCH (10:00)
--- NOTE | 2019-05-11 10:24 | DS ---
Physical Examination Vital Signs: Vital Signs Temperature 98.3 F 05/10/19 22:28 Pulse Rate 66 05/10/19 22:28 Respiratory Rate 18 05/10/19 22:28 Blood Pressure 132/78 05/10/19 22:28 O2 Sat by Pulse Oximetry (%) 95 05/10/19 22:28 Labs: CBC, BMP 05/10/19 05:40 05/10/19 05:40 Discharge Summary Problems reviewed: Yes Reason For Visit: LIGHTHEADEDNESS Hospital Course: admitted for syncopal episode work up negative stress echo was abnormal but as per Cardiology-- he did not feel it was abnormal no ischemia carotid negative ct chead negative stable for dc with follow up with me in office and cardiology as outpt started on ASA, Lopressor and Lipitor Goals: Call back Leryo Curran in the morning for further instructions. Follow up with Dr. Johnson, cardiology within the next 3 days. Condition: Stable - Instructions Referrals: Woodrow Johnson MD [Staff Physician] - Perla Stone MD [Primary Care Provider] - Disposition: HOME - Home Medications Comprehensive Discharge Medication List: Ambulatory Orders Tiotropium [place] [Spiriva] 18 mcg IH DAILY 05/09/19
== END 2019-05-10 22:35 | disposition home or self-care (01) ==
LOC: JER 14:53 → INTOOBSV 16:14 → UNDOADMOB 16:14 → JERBED 16:14 → UNDOADMOB 05-10 10:32 → JERBED 05-10 10:32
DX: R55 Syncope and collapse (principal); R42 Dizziness and giddiness; R53.1 Weakness; J44.9 Chronic obstructive pulmonary disease, unspecified; Z88.0 Allergy status to penicillin
CPT/HCPCS: 36415; 70450-TC; 71045-TC-FY; 71260-TC; 80053; 80061; 82550; 83721; 83735; 84439; 84443; 84484; 85025; 85610; 85730; 87804; 93005; 93010; 93306-TC; 93351; 93880-TC; 99285-25; J7030; Q9967

== ENCOUNTER 2019-12-16 14:27 | Inpatient (IN) | payer OTHER ==
[2019-12-16 14:34] VITALS: BMI 27.1
--- NOTE | 2019-12-16 14:35 | PDOC ---
Rapid Medical Evaluation Time Seen by Provider: 12/16/19 14:29 Medical Evaluation: Allergies Allergy/AdvReac Type Severity Reaction Status Date / Time Penicillins Allergy Rash Verified 12/16/19 14:28 12/16/19 14:29 I have performed a brief in-person evaluation of this patient. The patient presents with a chief complaint of: Sent in from for abnl CXR today after pt and went to clinic this am for covid testing. Per , pt has no acute sxs but states MD in listened to pt's lung and "heard somet poli". CXR read as mild atelectic changes to bases w/ ?trace L sided pleural effusion ( has report on her person). Pt denies sob, CP, cough, f/c or unexplained weight loss. Pt is a former smoker w/ COPD (not on oxygen). HTN and HLD, on asa Pertinent physical exam findings:stable and well piper I have ordered the following:CXR The patient will proceed to the ED for further evaluation. 12/16/19 14:36 Discharge Disposition - Diagnosis History of COPD - Referrals - Patient Instructions - Post Discharge Activity
--- NOTE | 2019-12-16 15:13 | PDOC ---
Attending Attestation - Resident Resident Name: PalenciaTeriEdwin - ED Attending Attestation I have performed the following: I have examined & evaluated the patient, The case was reviewed & discussed with the resident, I agree w/resident's findings & plan, Exceptions are as noted - HPI HPI: 12/16/19 15:45 79y M hx of COPD (No home O2, remote smoking history), sent in for evaluation of hypxoia. Patient states that he has been having several weeks of lower extremity edema as well as weight gain over the past 2 months of approximately 15 pounds, he saw his primary care doctor and received prescriptions for lab work and imaging. Today he went to urgent care with his to get COVID testing and they noticed he was hypoxic, they qasim some blood work got a chest x-ray and then referred him to the emergency department. Patient states he is otherwise been feeling fine beside his weight gain and leg swelling he denies any associated chest pain, shortness of breath, dyspnea on exertion, nausea, vomiting, diaphoresis, abdominal pain, back pain, lower extremity edema, cough, hemoptysis, fevers, chills. Patient states he has a remote history of smoking, smoked 2 packs a day for many years although he stopped 4 years ago. Physicial Exam GENERAL: The patient is awake, alert, and fully oriented, Nontoxic - in no acute distress. HEAD: Normocephalic, atraumatic. EYES: extraocular movements intact, sclera anicteric, conjunctiva clear. ENT: Normal voice, Moist mucous membranes. NECK: Normal range of motion, supple LUNGS: Scant rales at the left base HEART: Regular rate and rhythm, normal S1 and S2 without murmur, rub or gallop. ABDOMEN: Soft, nontender, slight distended, no guarding, no rebound. No CVA tenderness EXTREMITIES: Normal range of motion, bilateral +1 pitting edema, no calf tenderness, negative Homans sign NEUROLOGICAL: No facial assymetry, Normal speech, PSYCH: Normal mood, normal affect. SKIN: Warm, Dry, normal turgor, Patient noted to be hypoxic approximately 88 to 90% while speaking on room air Is previous visit last year, O2 sat was in the 95-96 range. will obtain xray of ches will obtain blood work will reasess - Physicial Exam PE: 07/24/20 17:58 see above - Medical Decision Making pt noted hypoxic - more so than previous results unclear cause at this time - will obtain CT to r/o alternative causes (ie: pna, covid, ) if neg, consider treatemnt for pe signed out to evening team to dispo pateint, anticipate admission Heart Score/ECG Review - ECG Impressions Comment:: 12/16/19 16:44 Twelve-lead EKG was performed and reviewed by me. There is normal sinus rhythm with a normal rate. Rate of 69 The axis is normal. The intervals are normal. There is normal R wave progression There are no ST or T wave abnormalities. Impression: Normal twelve-lead EKG Discharge - Discharge Information Problems reviewed: Yes Clinical Impression/Diagnosis: History of COPD, Hypoxia Condition: Stable - Follow up/Referral - Patient Discharge Instructions - Post Discharge Activity
--- NOTE | 2019-12-16 16:04 | PDOC ---
History of Present Illness - General Chief Complaint: Revisit,Radiology Variance Stated Complaint: SENT BY PCP/ SOB Time Seen by Provider: 12/16/19 14:29 - History of Present Illness Initial Comments: Rianna Powell is a 79 y/o male with PMH significant for COPD sent in from urgent care today hypoxia. Reports that he presented to for COVID testing but currently feels asymptomatic and is unsure about why he is here. Per UC rales in the left lower lung base and left pleural effusion on CXR. Concern for abdominal ascites. He also has prescriptions for outpatient BLE US for lower extremity edema and abdominal imaging for ascites and lab work from PCP Dr. Perla Stone. Pt denies shortness of breath, chest pain/pleuritic chest pain/exertional chest pain, exertional SOB, orthopnea, nausea, vomiting, fever, chills. Denies abdo harjeet pain/diarrhea/dysuria. Denies leg swelling. Denies wheezing. SocHx: 40 pack year smoking hx. Past History - Medical History Allergies/Adverse Reactions: Allergies Allergy/AdvReac Type Severity Reaction Status Date / Time Penicillins Allergy Rash Verified 12/16/19 14:28 Home Medications: Ambulatory Orders Aspirin Coated [Ecotrin -] 81 mg PO DAILY #30 tablet.ec 05/11/19 Atorvastatin Ca [Lipitor] 10 mg PO HS #30 tablet 05/11/19 Metoprolol Tartrate [Lopressor -] 12.5 mg PO BID #60 tablet 05/11/19 Montelukast Sodium [Singulair] 10 mg PO HS 12/16/19 Tamsulosin HCl [Flomax] 0.4 mg PO DAILY 12/16/19 Asthma: Yes COPD: Yes (former smoker) HTN: Yes Hypercholesterolemia: Yes - Surgical History Cholecystectomy: Yes - Psycho-Social/Smoking History Smoking History: Former smoker Have you smoked in the past 12 months: No Information on smoking cessation initiated: No - Substance Abuse Hx (Audit-C & DAST Scrn) How often the patient has a drink containing alcohol: Never Score: In Men: 4 or > Positive; In Women: 3 or > Positive: 0 Screen Result (Pos requires Nsg. Audit-10AR): Negative In the last yr the pt used illegal drug/Rx for NonMed reason: No Score: Yes response is considered Positive: 0 Screen Result (Positive result requires Nsg. DAST-10): Negative Review of Systems - Review of Systems Comments:: GENERAL/CONSTITUTIONAL: No fever or chills. No weakness._ HEAD, EYES, EARS, NOSE AND THROAT: No change in vision. No change in hearing. No sore throat._ CARDIOVASCULAR: No chest pain or shortness of breath_ RESPIRATORY: Denies cough, hemoptysis_ GASTROINTESTINAL: No nausea, vomiting, diarrhea or constipation._ GENITOURINARY: No dysuria, frequency, or change in urination._ MUSCULOSKELETAL: No joint or muscle swelling or pain. No neck or back pain._ SKIN: No rash_ NEUROLOGIC: No headache, vertigo, loss of consciousness, or change in strength/sensation._ ENDOCRINE: No increased thirst. No abnormal weight change_ HEMATOLOGIC/LYMPHATIC: No anemia, easy bleeding. ALLERGIC/IMMUNOLOGIC: No hives or skin allergy. *Physical Exam - Vital Signs Last Vital Signs Temp Pulse Resp BP Pulse Ox 99.3 F 76 18 112/72 93 L 12/16/19 14:28 12/16/19 15:30 12/16/19 14:28 12/16/19 14:28 12/16/19 15:30 - Physical Exam GENERAL: Awake, alert, and oriented to person/place/time, in no acute distress_ HEAD: No signs of trauma, normocephalic, atraumatic _ EYES: PERRLA, EOMI, sclera anicteric, conjunctiva clear_ ENT: Hearing grossly normal, nares patent, oropharynx clear without exudates. No uvular deviation. Moist mucosa_ NECK: Normal ROM, supple, no lymphadenopathy, JVD, or masses_ LUNGS: No distress, speaks in full sentences, clear to auscultation bilaterally. No wheezes, rales, rhonchi. HEART: Regular rate and rhythm, normal S1 and S2, no murmurs appreciated, peripheral pulses normal and equal bilaterally._ ABDOMEN: Soft, nontender, mildly fluid filled abdomen that is normotympanic and non distended. No guarding, no rebound. No masses_ EXTREMITIES: Normal inspection, Normal range of motion. 1+ pitting edema in bilateral lower extremities. No clubbing or cyanosis_ NEUROLOGICAL: Cranial nerves II through XII grossly intact. Normal speech, normal gait, no focal sensorimotor deficits _ SKIN: Warm, Dry, normal turgor, no rashes or lesions noted_ ED Treatment Course - LABORATORY CBC & Chemistry Diagram: 12/16/19 16:10 12/16/19 16:10 Medical Decision Making - Medical Decision Making 12/16/19 16:03 79M hx of COPD sent in from urgent care for shortness of breath and left pleural effusion on CXR. -labs -ekg -trop -cxr -O2 2L 12/16/19 16:44 EKG shows NSR 69 bpm, no ST elevation, nml axis, QTc 426. 12/16/19 18:08 Labs reviewed. Laboratory Last Values WBC 7.0 K/mm3 (4.0-10.0) 12/16/19 16:10 RBC 4.43 M/mm3 (4.00-5.60) 12/16/19 16:10 Hgb 14.3 GM/dL (11.7-16.9) 12/16/19 16:10 Hct 43.0 % (35.4-49) D 12/16/19 16:10 MCV 97.0 fl (80-96) H 12/16/19 16:10 MCH 32.3 pg (25.7-33.7) 12/16/19 16:10 MCHC 33.3 g/dl (32.0-35.9) 12/16/19 16:10 RDW 13.5 % (11.9-15.9) 12/16/19 16:10 Plt Count 211 K/MM3 (134-434) 12/16/19 16:10 MPV 8.9 fl (7.5-11.1) 12/16/19 16:10 Absolute Neuts (auto) 3.7 K/mm3 (1.5-8.0) 12/16/19 16:10 Neutrophils % 53.1 % (42.8-82.8) 12/16/19 16:10 Lymphocytes % 34.6 % (8-40) 12/16/19 16:10 Monocytes % 9.3 % (3.8-10.2) 12/16/19 16:10 Eosinophils % 2.2 % (0-4.5) 12/16/19 16:10 Basophils % 0.8 % (0-2.0) 12/16/19 16:10 Nucleated RBC % 0 % (0-0) 12/16/19 16:10 Sodium 140 mmol/L (136-145) 12/16/19 16:10 Potassium 3.8 mmol/L (3.5-5.1) 12/16/19 16:10 Chloride 106 mmol/L (98-107) 12/16/19 16:10 Carbon Dioxide 27 mmol/L (21-32) 12/16/19 16:10 Anion Gap 8 MMOL/L (8-16) 12/16/19 16:10 BUN 22.8 mg/dL (7-18) H 12/16/19 16:10 Creatinine 1.6 mg/dL (0.55-1.3) H 12/16/19 16:10 Est GFR (CKD-EPI)AfAm 47.46 12/16/19 16:10 Est GFR (CKD-EPI)NonAf 40.95 12/16/19 16:10 Random Glucose 112 mg/dL (74-106) H 12/16/19 16:10 Calcium 9.1 mg/dL (8.5-10.1) 12/16/19 16:10 Total Bilirubin 0.7 mg/dL (0.2-1) 12/16/19 16:10 AST 24 U/L (15-37) 12/16/19 16:10 ALT 33 U/L (13-61) 12/16/19 16:10 Alkaline Phosphatase 69 U/L (45-117) 12/16/19 16:10 Creatine Kinase 317 U/L (26-308) H 12/16/19 16:10 Creatine Kinase Index 1.4 % (0.0-5.0) 12/16/19 16:10 CK-MB (CK-2) 4.5 ng/mL (0.5-3.6) H 12/16/19 16:10 Troponin I < 0.02 ng/ml (0.00-0.05) 12/16/19 16:10 Total Protein 7.9 g/dl (6.4-8.2) 12/16/19 16:10 Albumin 3.8 g/dl (3.4-5.0) 12/16/19 16:10 12/16/19 18:17 CXR shows mild left pleural effusion. No infiltrate. No cardiomegaly. 12/16/19 18:43 VBG reviewed. Will obtain CT chest. Laboratory Last Values WBC 7.0 K/mm3 (4.0-10.0) 12/16/19 16:10 RBC 4.43 M/mm3 (4.00-5.60) 12/16/19 16:10 Hgb 14.3 GM/dL (11.7-16.9) 12/16/19 16:10 Hct 43.0 % (35.4-49) D 12/16/19 16:10 MCV 97.0 fl (80-96) H 12/16/19 16:10 MCH 32.3 pg (25.7-33.7) 12/16/19 16:10 MCHC 33.3 g/dl (32.0-35.9) 12/16/19 16:10 RDW 13.5 % (11.9-15.9) 12/16/19 16:10 Plt Count 211 K/MM3 (134-434) 12/16/19 16:10 MPV 8.9 fl (7.5-11.1) 12/16/19 16:10 Absolute Neuts (auto) 3.7 K/mm3 (1.5-8.0) 12/16/19 16:10 Neutrophils % 53.1 % (42.8-82.8) 12/16/19 16:10 Lymphocytes % 34.6 % (8-40) 12/16/19 16:10 Monocytes % 9.3 % (3.8-10.2) 12/16/19 16:10 Eosinophils % 2.2 % (0-4.5) 12/16/19 16:10 Basophils % 0.8 % (0-2.0) 12/16/19 16:10 Nucleated RBC % 0 % (0-0) 12/16/19 16:10 VBG pH 7.411 (7.310-7.410) H 12/16/19 18:20 POC VBG pCO2 42.1 mmHg (38-52) 12/16/19 18:20 POC VBG pO2 50.9 mmHg (28-48) H 12/16/19 18:20 VBG HCO3 26.1 mmol/L (23-29) 12/16/19 18:20 VBG O2 Sat (Margarito) 86.4 % (70-80) H 12/16/19 18:20 VBG Base Excess 1.3 mmol/L (-2-2) 12/16/19 18:20 Sodium 140 mmol/L (136-145) 12/16/19 16:10 Potassium 3.8 mmol/L (3.5-5.1) 12/16/19 16:10 Chloride 106 mmol/L (98-107) 12/16/19 16:10 Carbon Dioxide 27 mmol/L (21-32) 12/16/19 16:10 Anion Gap 8 MMOL/L (8-16) 12/16/19 16:10 BUN 22.8 mg/dL (7-18) H 12/16/19 16:10 Creatinine 1.6 mg/dL (0.55-1.3) H 12/16/19 16:10 Est GFR (CKD-EPI)AfAm 47.46 12/16/19 16:10 Est GFR (CKD-EPI)NonAf 40.95 12/16/19 16:10 Random Glucose 112 mg/dL (74-106) H 12/16/19 16:10 Calcium 9.1 mg/dL (8.5-10.1) 12/16/19 16:10 Total Bilirubin 0.7 mg/dL (0.2-1) 12/16/19 16:10 AST 24 U/L (15-37) 12/16/19 16:10 ALT 33 U/L (13-61) 12/16/19 16:10 Alkaline Phosphatase 69 U/L (45-117) 12/16/19 16:10 Creatine Kinase 317 U/L (26-308) H 12/16/19 16:10 Creatine Kinase Index 1.4 % (0.0-5.0) 12/16/19 16:10 CK-MB (CK-2) 4.5 ng/mL (0.5-3.6) H 12/16/19 16:10 Troponin I < 0.02 ng/ml (0.00-0.05) 12/16/19 16:10 Total Protein 7.9 g/dl (6.4-8.2) 12/16/19 16:10 Albumin 3.8 g/dl (3.4-5.0) 12/16/19 16:10 12/16/19 19:00 Pt s/o to Dr. Azevedo. Discharge - Discharge Information Problems reviewed: Yes Clinical Impression/Diagnosis: History of COPD, Hypoxia Condition: Stable - Follow up/Referral - Patient Discharge Instructions - Post Discharge Activity
[2019-12-16 17:13] LABS: BASO % 0.8 % (0-2.0); EOS % 2.2 % (0-4.5); HEMOGLOBIN 14.3 GM/dL (11.7-16.9); LYMPH % 34.6 % (8-40); MCH 32.3 pg (25.7-33.7); MCHC 33.3 g/dl (32.0-35.9); MEAN PLT VOLUME 8.9 fl (7.5-11.1); MONO % 9.3 % (3.8-10.2); NEUT % 53.1 % (42.8-82.8); PLATELET COUNT 211 K/MM3 (134-434); RBC 4.43 M/mm3 (4.00-5.60); RDW 13.5 % (11.9-15.9)
[2019-12-16 17:31] LABS: ALBUMIN 3.8 g/dl (3.4-5.0); ALK PHOS 69 U/L (45-117); ANION GAP 8 MMOL/L (8-16); BILIRUBIN,TOTAL 0.7 mg/dL (0.2-1); BLOOD UREA NITROGEN 22.8 mg/dL (7-18); CALCIUM 9.1 mg/dL (8.5-10.1); CHLORIDE 106 mmol/L (98-107); CO2 27 mmol/L (21-32); CREATININE 1.6 mg/dL (0.55-1.3); GLUCOSE,RANDOM 112 mg/dL (74-106); POTASSIUM 3.8 mmol/L (3.5-5.1); SGOT/AST 24 U/L (15-37); SGPT/ALT 33 U/L (13-61); SODIUM 140 mmol/L (136-145); TOT PROT 7.9 g/dl (6.4-8.2)
[2019-12-16 18:35] LABS: VENOUS BASE EXCESS 1.3 mmol/L (-2-2); VENOUS O2 SATURATION 86.4 % (70-80); VENOUS PCO2 42.1 mmHg (38-52); VENOUS PH 7.411 (7.310-7.410)
--- NOTE | 2019-12-16 20:50 | PDOC ---
*Physical Exam - Vital Signs Last Vital Signs Temp Pulse Resp BP Pulse Ox 98.3 F 62 16 103/77 93 L 12/16/19 19:10 12/16/19 19:10 12/16/19 19:10 12/16/19 19:10 12/16/19 19:10 <Brittany Grigsby - Last Filed: 12/16/19 20:54> - Vital Signs Last Vital Signs Temp Pulse Resp BP Pulse Ox 98.3 F 62 16 103/77 93 L 12/16/19 19:10 12/16/19 19:10 12/16/19 19:10 12/16/19 19:10 12/16/19 19:10 <Brooks Azevedo - Last Filed: 12/16/19 21:48> ED Treatment Course - LABORATORY CBC & Chemistry Diagram: 12/16/19 16:10 12/16/19 16:10 - ADDITIONAL ORDERS Additional order review: Laboratory Results 12/16/19 12/16/19 18:20 16:10 VBG pH 7.411 H POC VBG pCO2 42.1 POC VBG pO2 50.9 H VBG HCO3 26.1 VBG O2 Sat (Margarito) 86.4 H VBG Base Excess 1.3 Sodium 140 Potassium 3.8 Chloride 106 Carbon Dioxide 27 Anion Gap 8 BUN 22.8 H Creatinine 1.6 H Est GFR (CKD-EPI)AfAm 47.46 Est GFR (CKD-EPI)NonAf 40.95 Random Glucose 112 H Calcium 9.1 Total Bilirubin 0.7 AST 24 ALT 33 Alkaline Phosphatase 69 Creatine Kinase 317 H Creatine Kinase Index 1.4 CK-MB (CK-2) 4.5 H Troponin I < 0.02 Total Protein 7.9 Albumin 3.8 12/16/19 16:10 RBC 4.43 MCV 97.0 H MCHC 33.3 RDW 13.5 MPV 8.9 Neutrophils % 53.1 Lymphocytes % 34.6 Monocytes % 9.3 Eosinophils % 2.2 Basophils % 0.8 <Brittany Grigsby - Last Filed: 12/16/19 20:54> - LABORATORY CBC & Chemistry Diagram: 12/16/19 16:10 12/16/19 16:10 - ADDITIONAL ORDERS Additional order review: Laboratory Results 12/16/19 12/16/19 18:20 16:10 VBG pH 7.411 H POC VBG pCO2 42.1 POC VBG pO2 50.9 H VBG HCO3 26.1 VBG O2 Sat (Margarito) 86.4 H VBG Base Excess 1.3 Sodium 140 Potassium 3.8 Chloride 106 Carbon Dioxide 27 Anion Gap 8 BUN 22.8 H Creatinine 1.6 H Est GFR (CKD-EPI)AfAm 47.46 Est GFR (CKD-EPI)NonAf 40.95 Random Glucose 112 H Calcium 9.1 Total Bilirubin 0.7 AST 24 ALT 33 Alkaline Phosphatase 69 Creatine Kinase 317 H Creatine Kinase Index 1.4 CK-MB (CK-2) 4.5 H Troponin I < 0.02 Total Protein 7.9 Albumin 3.8 12/16/19 16:10 RBC 4.43 MCV 97.0 H MCHC 33.3 RDW 13.5 MPV 8.9 Neutrophils % 53.1 Lymphocytes % 34.6 Monocytes % 9.3 Eosinophils % 2.2 Basophils % 0.8 <Brooks Azevedo - Last Filed: 12/16/19 21:48> Medical Decision Making - Medical Decision Making 12/16/19 20:54 Patient Name: HOLLY KRUSE THIS IS A PRELIMINARY REPORT FROM [facility] DATE OF SERVICE: 2019-12-16 19:59:23 IMAGES: [id number] EXAM: CHEST CT WITHOUT CONTRAST HISTORY: Hypoxia COMPARISON: None. FINDINGS: Centrilobular emphysematous changes predominantly in the upper lobes with bilateral upper lobe scarring Subsegmental atelectasis in the right lower lobe with compressive atelectasis at the lung bases Trace left subpulmonic pleural effusion Scattered calcified pulmonary nodules and calcified right hilar and paratracheal lymph node compatible with old granulomatous disease The tracheobronchial tree is patent Heart size is upper limits of normal. No pericardial effusion Atherosclerotic calcifications in the thoracic aorta without aneurysmal dilatation Small hiatal hernia Scattered small hypodense lesions in the liver with attenuation measurements slightly higher than simple fluid. Consider further evaluation with MRI to better characterize Absent gallbladder Duodenal diverticulum containing air and debris Included portions of the upper abdomen are otherwise unremarkable <Brittany Grigsby - Last Filed: 12/16/19 20:54> - Medical Decision Making Sign out was given by Dr. Palencia. I went and reassessed patient. Patient was on 2L. Patient is stable. Patient was in CT chest scan for hypoxia. CT scan came back negative. MBAL was sent to admitting symphony under Dr. Perla Duncan. Patient will be admitting for hypoxia under attending.... <Brooks Azevedo - Last Filed: 12/16/19 21:48> Discharge <Brittany Grigsby - Last Filed: 12/16/19 20:54> - Discharge Information Problems reviewed: Yes - Admission Yes <Brooks Azevedo - Last Filed: 12/16/19 21:48> - Discharge Information Clinical Impression/Diagnosis: History of COPD Condition: Good - Follow up/Referral Referrals: Perla Stone MD [Primary Care Provider] - - Patient Discharge Instructions - Post Discharge Activity
--- NOTE | 2019-12-16 21:16 | HP ---
Admitting History and Physical - Primary Care Physician PCP: Perla Stone - Admission Chief Complaint: Hypoxia, Abnormal Chest Xray History of Present Illness: This is a 79 y/o male with a PMHx of COPD (no O2), former smoker. Who presents to the ED from urgent care today hypoxia. Patient is Cantonese speaking, [employer] line used #[id number]. Patient reports that he presented to urgent care for COVID testing, but currently feels asymptomatic and is unsure about why he is here. Patient reports having no symptoms of respiratory distress. Per ED records: Per rales in the left lower lung base and left pleural effusion on CXR. Concern for abdominal ascites. He also has prescriptions for outpatient BLE US for lower extremity edema and abdominal imaging for ascites and lab work from PCP Dr. Perla Stone. Patient denies fever, chills, cough, SOB, MAST, dizziness, CP, palpitations, AP, N/V/D, constipation, melena, hematochezia, hematuria, dysuria. Patient denies sick contacts or recent travel. History Source: Patient Limitations to Obtaining History: Language Barrier - Past Medical History Pulmonary: Yes: COPD (ex smoker) - Past Surgical History Past Surgical History: Yes: Cholecystectomy - Smoking History Smoking history: Former smoker Have you smoked in the past 12 months: No - Alcohol/Substance Use Hx Alcohol Use: No History of Substance Use: reports: None - Social History Usual Living Arrangement: Yes: With Spouse Do you think of yourself as: Straight/Heterosexual ADL: Independent History of Recent Travel: No Home Medications - Allergies Allergies/Adverse Reactions: Allergies Allergy/AdvReac Type Severity Reaction Status Date / Time Penicillins Allergy Rash Verified 12/16/19 14:28 - Home Medications Home Medications: Ambulatory Orders Aspirin Coated [Ecotrin -] 81 mg PO DAILY #30 tablet.ec 05/11/19 Atorvastatin Ca [Lipitor] 10 mg PO HS #30 tablet 05/11/19 Metoprolol Tartrate [Lopressor -] 12.5 mg PO BID #60 tablet 05/11/19 Montelukast Sodium [Singulair] 10 mg PO HS 12/16/19 Tamsulosin HCl [Flomax] 0.4 mg PO DAILY 12/16/19 Family Medical History Family History: Unremarkable Review of Systems - Review of Systems Constitutional: reports: No Symptoms Eyes: reports: No Symptoms HENT: reports: No Symptoms Neck: reports: No Symptoms Cardiovascular: reports: No Symptoms Respiratory: reports: No Symptoms Gastrointestinal: reports: No Symptoms Genitourinary: reports: No Symptoms Breasts: reports: No Symptoms Reported Musculoskeletal: reports: No Symptoms, Joint Pain Integumentary: reports: No Symptoms Neurological: reports: No Symptoms Endocrine: reports: No Symptoms Hematology/Lymphatic: reports: No Symptoms Psychiatric: reports: No Symptoms Physical Examination Vital Signs: Vital Signs Temperature 98.3 F 12/16/19 19:10 Pulse Rate 62 12/16/19 19:10 Respiratory Rate 16 12/16/19 19:10 Blood Pressure 103/77 12/16/19 19:10 O2 Sat by Pulse Oximetry (%) 93 L 12/16/19 19:10 Constitutional: Yes: No Distress, Calm Eyes: Yes: WNL, Conjunctiva Clear, EOM Intact, PERRL HENT: Yes: WNL, Atraumatic, Normocephalic Neck: Yes: WNL, Supple, Trachea Midline Cardiovascular: Yes: Regular Rate and Rhythm, S1, S2 Respiratory: Yes: Diminished, On Nasal O2 Gastrointestinal: Yes: Normal Bowel Sounds, Soft ...Rectal Exam: Yes: Deferred Renal/: Yes: WNL Breast(s): Yes: WNL Musculoskeletal: Yes: WNL Extremities: Yes: WNL Edema: Yes Edema: LLE: 1+, RLE: Trace Peripheral Pulses WNL: Yes Neurological: Yes: WNL, Alert, Oriented, Cran Nerves II-XII Intact ...Motor Strength: WNL Psychiatric: Yes: WNL, Alert, Oriented Labs: CBC, BMP 12/16/19 16:10 12/16/19 16:10 Laboratory Results - last 24 hr 12/16/19 12/16/19 12/16/19 16:10 16:10 18:20 WBC 7.0 RBC 4.43 Hgb 14.3 Hct 43.0 D MCV 97.0 H MCH 32.3 MCHC 33.3 RDW 13.5 Plt Count 211 MPV 8.9 Absolute Neuts (auto) 3.7 Neutrophils % 53.1 Lymphocytes % 34.6 Monocytes % 9.3 Eosinophils % 2.2 Basophils % 0.8 Nucleated RBC % 0 VBG pH 7.411 H POC VBG pCO2 42.1 POC VBG pO2 50.9 H VBG HCO3 26.1 VBG O2 Sat (Margarito) 86.4 H VBG Base Excess 1.3 Sodium 140 Potassium 3.8 Chloride 106 Carbon Dioxide 27 Anion Gap 8 BUN 22.8 H Creatinine 1.6 H Est GFR (CKD-EPI)AfAm 47.46 Est GFR (CKD-EPI)NonAf 40.95 Random Glucose 112 H Calcium 9.1 Total Bilirubin 0.7 AST 24 ALT 33 Alkaline Phosphatase 69 Creatine Kinase 317 H Creatine Kinase Index 1.4 CK-MB (CK-2) 4.5 H Troponin I < 0.02 B-Natriuretic Peptide 39.8 Total Protein 7.9 Albumin 3.8 Intake & Output 12/14/19 12/15/19 12/16/19 12/17/19 23:59 23:59 23:59 23:59 Weight 71.668 kg Current Medications Generic Name Dose Route Start Last Admin Trade Name Freq PRN Reason Stop Dose Admin Albuterol Sulfate 2 puff 12/16/19 21:19 Ventolin Hfa Inhaler - IH Q6H PRN SHORT OF BREATH/WHEEZING Aspirin 81 mg 12/17/19 10:00 Ecotrin - PO DAILY NIRANJAN Atorvastatin Calcium 10 mg 12/17/19 22:00 Lipitor - PO HS NIRANJAN Montelukast Sodium 10 mg 12/17/19 22:00 Singulair - PO HS NIRANJAN Tamsulosin HCl 0.4 mg 12/17/19 08:30 Flomax - PO 0830 NIRANJAN Imaging - Results Chest X-ray: Image Reviewed Cat Scan: Report Reviewed, Image Reviewed Problem List - Problems (1) Acute respiratory failure with hypoxia Assessment/Plan: Likely secondary to COPD vs Emphysema Chest Xray image, report-reviewed VBG-7.4/42.1/50.9/26.1/86.4 Appreciate Pulmonology Consult Continue O2 Continue Albuterol MDI Code(s): J96.01 - ACUTE RESPIRATORY FAILURE WITH HYPOXIA (2) COPD exacerbation Assessment/Plan: Chest Xray image- increased markings Chest CT omage, report- reviewed O2 Appreciate Pulmonology consult Albuterol MDI Would benefit from LABA Code(s): J44.1 - CHRONIC OBSTRUCTIVE PULMONARY DISEASE W (ACUTE) EXACERBATION (3) Lower extremity edema Assessment/Plan: R/O CHF BNP-nl Chest Xray image reviewed Elevate extremity Code(s): R60.0 - LOCALIZED EDEMA (4) Suspected COVID-19 virus infection Assessment/Plan: SM[employer]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 Admitted to [facility] for Acute Respiratory Failure with Hypoxia, COPD Exacerbation, Suspected COVID-19 Infection, TERENCE for further evaluation of their emergent condition. Plan: See Problem List FEN PO fluids as tolerated Replete lytes prn Low Na Diet DVT ppx OOB SCDs Heparin SQ Dispo: Requires Inpatient Care Visit type - Emergency Visit Emergency Visit: Yes ED Registration Date: 12/16/19 Care time: The patient presented to the Emergency Department on the above date and was hospitalized for further evaluation of their emergent condition. - New Patient This patient is new to me today: Yes Date on this admission: 12/16/19 - Critical Care Critical Care patient: No
[2019-12-16] MEDS ORDERED: ALBUTEROL SO4 HFA INHALER IH PRN (21:19)
[2019-12-16 21:48] LABS: N-TERMINAL BNP 39.8 pg/ml (5-450)
[2019-12-17 07:14] LABS: BASO % 0.6 % (0-2.0); HEMATOCRIT 42.2 % (35.4-49); HEMOGLOBIN 13.8 GM/dL (11.7-16.9); LYMPH % 37.3 % (8-40); MCHC 32.8 g/dl (32.0-35.9); MEAN CELL VOLUME 97.7 fl (80-96); MEAN PLT VOLUME 8.9 fl (7.5-11.1); NEUT % 50.1 % (42.8-82.8); PLATELET COUNT 204 K/MM3 (134-434); RBC 4.32 M/mm3 (4.00-5.60); RDW 13.8 % (11.9-15.9); WHITE BLOOD COUNT 6.5 K/mm3 (4.0-10.0)
[2019-12-17 07:43] LABS: ALBUMIN 3.6 g/dl (3.4-5.0); BILIRUBIN,TOTAL 0.9 mg/dL (0.2-1); CALCIUM 8.9 mg/dL (8.5-10.1); CREATININE 1.3 mg/dL (0.55-1.3); MAGNESIUM 2.3 mg/dL (1.8-2.4); POTASSIUM 4.2 mmol/L (3.5-5.1); TOT PROT 7.4 g/dl (6.4-8.2)
[2019-12-17] MEDS ORDERED: TAMSULOSIN HCL 0.4 MG CAP ONE (08:09)
[2019-12-17] MEDS ORDERED: TAMSULOSIN HCL 0.4 MG CAP PO SCH (08:30)
[2019-12-17] MEDS ORDERED: ASPIRIN COATED 81 MG TABLET.EC ONE (09:11)
[2019-12-17] MEDS ORDERED: HEPARIN NA (PORCINE) 5,000 UNITS/ML 1ML VIAL ONE (09:11)
[2019-12-17] MEDS ORDERED: ASPIRIN COATED 81 MG TABLET.EC PO SCH (10:00)
[2019-12-17] MEDS ORDERED: HEPARIN NA (PORCINE) 5,000 UNITS/ML 1ML VIAL SQ SCH (10:00)
--- NOTE | 2019-12-17 11:54 | PN ---
Progress Note (short form) - Note Progress Note: see dc summary
[2019-12-17] MEDS ORDERED: PANTOPRAZOLE 40 MG TABLET PO SCH (12:00)
[2019-12-17] MEDS ORDERED: PANTOPRAZOLE 40 MG TABLET ONE (12:10)
--- NOTE | 2019-12-17 12:50 | DS ---
Physical Examination Vital Signs: Vital Signs Temperature 98.0 F 12/17/19 09:24 Pulse Rate 70 12/17/19 09:24 Respiratory Rate 20 12/17/19 09:24 Blood Pressure 139/77 12/17/19 09:24 O2 Sat by Pulse Oximetry (%) 93 L 12/17/19 09:24 Constitutional: Yes: No Distress Cardiovascular: Yes: Regular Rate and Rhythm Respiratory: Yes: Diminished Gastrointestinal: Yes: Normal Bowel Sounds, Soft Edema: Yes Edema: LLE: 1+, RLE: 1+ Labs: CBC, BMP 12/17/19 05:50 12/17/19 05:50 Discharge Summary Problems reviewed: Yes Reason For Visit: HYPOXIA,CHRONIC OBSTRUCTIVE PULMONARY DISEASE Current Active Problems Acute respiratory failure with hypoxia (Acute) History of COPD (Acute) Hypoxia (Acute) Lower extremity edema (Acute) Suspected COVID-19 virus infection (Acute) Health Concerns: sent by urgent care for low O2 sat and abnormal CXR CT chest -- emphysematous changes O2 sat on ambulation 91% asymptomatic pt was seen by Pulmonary Pt stable dc home, cleared by Pulmonary-- with follow up in both my office and Pulmonary Condition: Stable - Instructions Referrals: Perla Stone MD [Primary Care Provider] - Chris Portillo MD [Staff Physician] - Disposition: HOME - Home Medications Comprehensive Discharge Medication List: Ambulatory Orders Aspirin Coated [Ecotrin -] 81 mg PO DAILY #30 tablet.ec 05/11/19 Atorvastatin Ca [Lipitor] 10 mg PO HS #30 tablet 05/11/19 Metoprolol Tartrate [Lopressor -] 12.5 mg PO BID #60 tablet 05/11/19 Montelukast Sodium [Singulair] 10 mg PO HS 12/16/19 Tamsulosin HCl [Flomax] 0.4 mg PO DAILY 12/16/19
--- NOTE | 2019-12-17 13:44 | CON.PULM ---
Consult Consult Specialty:: PULM/CCM Referred by:: ROOPA Reason for Consultation:: SOB - History of Present Illness Chief Complaint: SOB History of Present Illness: 79 M, COPD due to remote smoking. Presented to the ER after he referred from urgent care due to suspicion for COVID19 infection. No fever or chills. No hemoptysis or night sweats. No known exposure to anyone with COVID[address] : chronic changes with minimal new areas of atelectasis. No masses or nodules. No evidence of capillary leak syndrome. Reports that he feels at his baseline. No CP or SOB or SILVA. - History Source History Provided By: Patient Limitations to Obtaining History: No Limitations - Past Medical History Pulmonary: Yes: Bronchitis, COPD (ex smoker). No: Asthma, Cancer, O2 Dependent, Pneumonia, Previously Intubated, Pulmonary Embolus, Pulmonary Fibrosis, Sleep Apnea - Past Surgical History Past Surgical History: Yes: Cholecystectomy - Alcohol/Substance Use Hx Alcohol Use: No History of Substance Use: reports: None - Smoking History Smoking history: Former smoker Have you smoked in the past 12 months: No - Social History ADL: Independent History of Recent Travel: No Home Medications - Allergies Allergies/Adverse Reactions: Allergies Allergy/AdvReac Type Severity Reaction Status Date / Time Penicillins Allergy Rash Verified 12/16/19 14:28 - Home Medications Home Medications: Ambulatory Orders Aspirin Coated [Ecotrin -] 81 mg PO DAILY #30 tablet.ec 05/11/19 Atorvastatin Ca [Lipitor] 10 mg PO HS #30 tablet 05/11/19 Metoprolol Tartrate [Lopressor -] 12.5 mg PO BID #60 tablet 05/11/19 Montelukast Sodium [Singulair] 10 mg PO HS 12/16/19 Tamsulosin HCl [Flomax -] 0.4 mg PO DAILY 12/16/19 Review of Systems - Review of Systems Constitutional: denies: Chills, Fever, Malaise, Night Sweats, Unintentional Wgt. Loss Eyes: reports: No Symptoms HENT: reports: No Symptoms Neck: reports: No Symptoms Cardiovascular: reports: Edema. denies: Chest Pain, Palpitations, Shortness of Breath Respiratory: reports: Cough. denies: Hemoptysis, Orthopnea, PND, Snoring, SOB, SOB on Exertion, Wheezing Gastrointestinal: reports: No Symptoms Genitourinary: reports: No Symptoms Breasts: reports: No Symptoms Reported Musculoskeletal: reports: No Symptoms Integumentary: reports: No Symptoms Neurological: reports: No Symptoms Endocrine: reports: No Symptoms Hematology/Lymphatic: reports: No Symptoms Psychiatric: reports: No Symptoms Physical Exam Vital Sings: Vital Signs Temperature 98.0 F 12/17/19 09:24 Pulse Rate 70 12/17/19 09:24 Respiratory Rate 20 12/17/19 09:24 Blood Pressure 139/77 12/17/19 09:24 O2 Sat by Pulse Oximetry (%) 93 L 12/17/19 09:24 Constitutional: Yes: No Distress, Calm Eyes: Yes: Conjunctiva Clear, EOM Intact HENT: Yes: Atraumatic, Normocephalic Neck: Yes: Supple, Trachea Midline Cardiovascular: Yes: Regular Rate and Rhythm Respiratory: Yes: CTA Bilaterally, Diminished. No: Accessory Muscle Use, Rales, Rhonchi, SOB, SOB on Exertion, Stridor, Tachypnea, Wheezes ...Inspection: Yes: WNL ...Clubbing: No Gastrointestinal: Yes: Normal Bowel Sounds, Soft Renal/: Yes: WNL Musculoskeletal: Yes: WNL Extremities: Yes: WNL Edema: No Peripheral Pulses WNL: Yes Integumentary: Yes: WNL, Other Neurological: Yes: WNL, Alert, Oriented ...Motor Strength: WNL Psychiatric: Yes: WNL, Alert, Oriented Labs: CBC, BMP 12/17/19 05:50 12/17/19 05:50 Imaging - Results Chest X-ray: Report Reviewed, Image Reviewed Cat Scan: Report Reviewed, Image Reviewed Problem List - Problems (1) History of COPD Code(s): Z87.09 - PERSONAL HISTORY OF OTHER DISEASES OF THE RESPIRATORY SYSTEM (2) Lower extremity edema Code(s): R60.0 - LOCALIZED EDEMA (3) COPD (chronic obstructive pulmonary disease) Code(s): J44.9 - CHRONIC OBSTRUCTIVE PULMONARY DISEASE, UNSPECIFIED (4) Atelectasis of both lungs Code(s): J98.11 - ATELECTASIS Assessment/Plan Patient reports feeling at his baseline. NO further testing warranted at this time. Will need outpatient PFTs. Monitor off ABX Monitor off systemic steroids No smoking Should check O2 saturation post ambulation Can follow in the office Thank you. Dr Portillo
[2019-12-17] MEDS ORDERED: methylPREDNISolone NA SUCC 40 MG/1 ML VIAL IVPUSH SCH (15:00)
[2019-12-17 15:09] VITALS: BP 105/59
[2019-12-17 15:11] VITALS: TEMP 97.9
[2019-12-17 15:35] VITALS: PULSE 86
[2019-12-17] MEDS ORDERED: MONTELUKAST NA 10 MG TABLET PO SCH (22:00)
[2019-12-17] MEDS ORDERED: ATORVASTATIN CA 10 MG TABLET (FP) PO SCH (22:00)
--- NOTE | 2019-12-18 09:24 | EKG ---
Test Reason : Blood Pressure : / mmHG Vent. Rate : 069 BPM Atrial Rate : 069 BPM P-R Int : 166 ms QRS Dur : 080 ms QT Int : 398 ms P-R-T Axes : 052 007 037 degrees QTc Int : 426 ms NORMAL SINUS RHYTHM NORMAL ECG WHEN COMPARED WITH ECG OF 09-MAY-2019 15:03, PREMATURE VENTRICULAR COMPLEXES ARE NO LONGER PRESENT Confirmed by Niika Loja ([id number]) on 12/18/2019 9:23:42 AM Referred By: Confirmed By:Nikia Loja
== END 2019-12-17 15:40 | disposition home or self-care (01) | DRG 189 ==
LOC: JER 14:27 → JERBED 20:50
PROVIDERS: ADMIT Internal Medicine; ATTEND Internal Medicine
DX: J96.01 Acute respiratory failure with hypoxia (principal); J44.1 Chronic obstructive pulmonary disease with (acute) exacerbation; J98.11 Atelectasis; N17.9 Acute kidney failure, unspecified; J90 Pleural effusion, not elsewhere classified; I10 Essential (primary) hypertension; E78.00 Pure hypercholesterolemia, unspecified; R60.0 Localized edema; K76.9 Liver disease, unspecified
CPT/HCPCS: 36415; 71046-TC-FY; 71250-TC; 80053; 82550; 82553; 82803; 83735; 83880; 84484; 85025; 93005; 93010; 99285-25; J1644; U0003

== ENCOUNTER 2020-03-18 06:00 | Day surgery (SDC) | payer OTHER ==
[2020-03-12 16:05] VITALS: BMI 27.4
--- OUTSIDE RECORDS SUMMARY | 2020-03-18 06:04 | XMS ---
:1940 Author Organization [facility] Support Name Relationship Address Phone UE, UNEMPLOYED Unavailable Unavailable Unavailable RE, RETIRED Unavailable Unavailable Unavailable RE Unavailable Unavailable Unavailable UE Unavailable Unavailable Unavailable SAI PETE [address] [place] [address] CASSIE KRUSE DAUGHTER [address] [place] [address] CASSIE KRUSE Child [address] [place] [address] Re-disclosure Warning The records that you are about to access may contain information from federally- assisted alcohol or drug abuse programs. If such information is present, then the following federally mandated warning applies: This information has been disclosed to you from records protected by federal confidentiality rules (42 CFR part 2). The federal rules prohibit you from making any further disclosure of this information unless further disclosure is expressly permitted by the written consent of the person to whom it pertains or as otherwise permitted by 42 CFR part 2. A general authorization for the release of medical or other information is NOT sufficient for this purpose. The Federal rules restrict any use of the information to criminally investigate or prosecute any alcohol or drug abuse patient.The records that you are about to access may contain highly sensitive health information, the redisclosure of which is protected by Article 27-F of the [facility] Public Health law. If you continue you may haveaccess to information: Regarding HIV / AIDS; Provided by facilities licensed or operated by the [facility] Office of Mental Health; or Provided by the [facility] Office for People With Developmental Disabilities. If such information is present, then the following [facility] mandated warning applies: This information has been disclosed to you from confidential records which are protected by state law. State law prohibits you from making any further disclosure of this information without the specific written consent of the person to whom it pertains, or as otherwise permitted by law. Any unauthorized further disclosure in violation of state law may result in a fine or longterm sentence or both. A general authorization for the release of medical or other information is NOT sufficient authorization for further disclosure. Insurance Providers Payer name Policy type Policy ID Covered Covered alliance party's Policy P franchesca / Coverage alliance party ID relationship to [place] [employer] ormation type [place] MEDICAID [id number] SP [id number] HIP MEDICARE [id number] SP [id number] VIP 1 [employer] MEDICARE [id number] Results ID Date Data Source [id number] 12/16/2019 09:22:00 PM EDT [facility] Name Value Range Interpretation Description Data Sup porting Code Source(s) Document(s ) SARS [facility] coronavirus 2 RNA This lab was ordered by [facility] and reported by [facility]. Procedure
[2020-03-18] MEDS ORDERED: PHENYLEPHRINE 2.5% OPHTH SOLN 15 ML BOTTLE ONE (06:59)
[2020-03-18] MEDS ORDERED: CIPROFLOXACIN 0.3% EYE DROPS 5 ML BOTTLE ONE (06:59)
[2020-03-18] MEDS ORDERED: TROPICAMIDE 1% OPHTH SOLN 15 ML BOTTLE ONE (06:59)
[2020-03-18] MEDS ORDERED: CYCLOPENTOLATE 2% OPHTH SOLN 2 ML BOTTLE ONE (06:59)
[2020-03-18] MEDS ORDERED: BETAXOLOL HCL 0.25% OPHTHALMIC 10 ML DROPSBTL ONE (07:15)
[2020-03-18] MEDS ORDERED: BACITRACIN/POLYMYXIN OPH OINT 3.5 GM TUBE ONE (07:15)
[2020-03-18] MEDS ORDERED: EPI-SHUGARCAINE (EPINEPHRINE 0.025% & LIDOCAINE-PF 0.75%) 4ML ONE (07:15)
[2020-03-18] MEDS ORDERED: NEO/POLYMYX B SULF/DEXAMETH OPHTHALMIC 5ML BOTTLE ONE (07:16)
[2020-03-18] MEDS ORDERED: ACETYLCHOLINE 1:100 INTRA-OCUL 20 MG/2 ML KIT ONE (07:16)
[2020-03-18] MEDS ORDERED: POVIDONE-IODINE 5% OPHTHALMIC PREP 30 ML SOLUTION ONE (07:16)
[2020-03-18] MEDS ORDERED: TETRACAINE 0.5% OPHTH SOLN 2 ML BOTTLE ONE (07:16)
[2020-03-18] MEDS ORDERED: EPINEPHrine/PF 1 MG/1 ML (1:1,000) AMPULE ONE (07:16)
[2020-03-18] MEDS ORDERED: ACETAMINOPHEN 325 MG TABLET (FP) PO PRN (07:23)
[2020-03-18] MEDS ORDERED: PHENYLEPHRINE 2.5% OPHTH SOLN 15 ML BOTTLE OP SCH ×2 (07:30→08:30)
[2020-03-18] MEDS ORDERED: TROPICAMIDE 1% OPHTH SOLN 15 ML BOTTLE OP SCH ×2 (07:30→08:30)
[2020-03-18] MEDS ORDERED: KETOROLAC TROMETHAMINE 0.5% EYE DROP 1 DROP DROPS OP SCH (07:30)
[2020-03-18] MEDS ORDERED: CYCLOPENTOLATE HCL 1% OPHTH SOLN 2 ML BOTTLE OP SCH (07:30)
[2020-03-18] MEDS ORDERED: OFLOXACIN 0.3% OPHTHALMIC SOLUTION 5 ML BOTTLE OP SCH (07:30)
[2020-03-18] MEDS ORDERED: MIDAZOLAM HCL 2 MG/2 ML SINGLE DOSE VIAL ONE (07:42)
[2020-03-18] MEDS ORDERED: CIPROFLOXACIN HCL 0.3% OPHTH 2.5ML BOTTLE OP SCH (08:30)
[2020-03-18] MEDS ORDERED: CYCLOPENTOLATE 2% OPHTH SOLN 2 ML BOTTLE OP SCH (08:30)
[2020-03-18 08:34] VITALS: TEMP 97.8
[2020-03-18 09:41] VITALS: BP 128/80; PULSE 62
[2020-03-18] MEDS ORDERED: PHENYLEPHRINE 2.5% OPHTH SOLN 15 ML BOTTLE OS SCH (11:00)
[2020-03-18] MEDS ORDERED: CYCLOPENTOLATE 2% OPHTH SOLN 2 ML BOTTLE OS SCH (11:00)
[2020-03-18] MEDS ORDERED: CIPROFLOXACIN HCL 0.3% OPHTH 2.5ML BOTTLE OS SCH (11:00)
[2020-03-18] MEDS ORDERED: TROPICAMIDE 1% OPHTH SOLN 15 ML BOTTLE OS SCH (11:00)
--- NOTE | 2020-03-18 19:07 | OPR ---
Date of Operation: 03/18/20 Surgeon: Miguel Almanza MD Diagnosis: Visually significant Nuclear cataract Left Eye Procedure: Cataract surgery with posterior chamber lens implant Left Eye Complications: None SPECIFIC TYPE OF CATARACT: Nuclear Sclerosis After appropriate consent and clearance the patient was brought to the operating room and administered fractional anesthesia. The patient was prepped and draped in a sterile manner. Attention was turned to the surgical eye. A paracentesis site was made. Intracameral anesthetic was administered. Viscoelastic was injected to maintain the anterior chamber depth. A keratome was used to make a self sealing incision.A continuous tear capsulorrhexis was made using a cystotome and utrata forceps. [place] dissection and hydro delineation were performed with BSS in a syringe with a cannula. The lens nucleus was then phaco-emulsified and aspirated from the eye. Cortical cleanup was performed using the irrigation and aspiration probe. Additional viscoelastic was injected into the eye. The lens implant was placed with both haptics and the optic in the endocapsular bag. Residual viscoelastic was removed from the eye using the irrigation and aspiration probe. The wound was tested to be watertight. Antibiotic solution was injected into the anterior chamber. Disposition: The patient was discharged to the recovery room in stable condition.
--- NOTE | 2020-03-19 18:10 | HP ---
- Patient Date of Surgery: 03/19/20 Scheduled Surgical Procedure: Phacoemulsification and cataract extraction with PCIOL Affected Side: Left - Medical History Current Medications: Ambulatory Orders Aspirin Coated [Ecotrin -] 81 mg PO DAILY #30 tablet.ec 05/11/19 Atorvastatin Ca [Lipitor] 10 mg PO HS #30 tablet 05/11/19 Metoprolol Tartrate [Lopressor -] 12.5 mg PO BID #60 tablet 05/11/19 Montelukast Sodium [Singulair] 10 mg PO HS 12/16/19 Tamsulosin HCl [Flomax -] 0.4 mg PO DAILY 12/16/19 Allergies/Adverse Reactions: Allergies Allergy/AdvReac Type Severity Reaction Status Date / Time Penicillins Allergy Rash Verified 12/16/19 14:28 - Visual Acuity Right Eye: 20/200 Left Eye: 20/70 - Intraocular Pressure (IOP) Intraocular Pressure (mm/Hg) - Right eye: 15 Intraocular Pressure (mm/Hg)-Left eye: 15 - Segments Anterior segment: WNL Posterior segment: WNL - Impression Impression: Cataract Left Eye - Plan Plan: Phacoemulsification and cataract extraction - IOL Left eye Implant: Primary: SN60WF 22.0
== END 2020-03-18 09:30 | disposition home or self-care (01) ==
LOC: FASU 06:00
PROVIDERS: ATTEND Ophthalmology
PROC: 08RK3JZ Replacement of Left Lens with Synthetic Substitute, Percutaneous Approach (ICD-10-PCS; principal; 2020-03-18 07:53)
DX: H25.12 Age-related nuclear cataract, left eye (principal)

== ENCOUNTER 2020-04-15 06:31 | Day surgery (SDC) | payer OTHER ==
[2020-04-09 14:01] VITALS: BMI 27.4
[~2020-04-15 06:31] MED LIST: ACETAMINOPHEN 325 MG TABLET (FP) PO PRN; CIPROFLOXACIN HCL 0.3% OPHTH 2.5ML BOTTLE OP SCH; TROPICAMIDE 1% OPHTH SOLN 15 ML BOTTLE OP SCH
[2020-04-15] MEDS ORDERED: CYCLOPENTOLATE 2% OPHTH SOLN 2 ML BOTTLE ONE (07:12)
[2020-04-15] MEDS ORDERED: PHENYLEPHRINE 2.5% OPHTH SOLN 15 ML BOTTLE ONE (07:13)
[2020-04-15] MEDS ORDERED: CIPROFLOXACIN 0.3% EYE DROPS 5 ML BOTTLE ONE (07:13)
[2020-04-15] MEDS ORDERED: MIDAZOLAM HCL 2 MG/2 ML SINGLE DOSE VIAL ONE (07:14)
[2020-04-15] MEDS ORDERED: SUCCINYLCHOLINE CHLORIDE 200 MG/10 ML SYRINGE ONE (07:14)
[2020-04-15] MEDS: PHENYLEPHRINE 2.5% OPHTH SOLN 15 ML BOTTLE OP SCH ×3 (07:15→07:25)
[2020-04-15] MEDS: CYCLOPENTOLATE 2% OPHTH SOLN 2 ML BOTTLE OP SCH ×3 (07:15→07:25)
[2020-04-15] MEDS: TROPICAMIDE 1% OPHTH SOLN 15 ML BOTTLE ONE ×3 (07:15→07:25)
[2020-04-15] MEDS: CIPROFLOXACIN HCL 0.3% OPHTH 2.5ML BOTTLE OP SCH ×3 (07:15→07:25)
[2020-04-15] MEDS ORDERED: EPI-SHUGARCAINE (EPINEPHRINE 0.025% & LIDOCAINE-PF 0.75%) 4ML ONE (07:16)
[2020-04-15] MEDS ORDERED: TETRACAINE 0.5% OPHTH SOLN 2 ML BOTTLE ONE (07:16)
[2020-04-15] MEDS ORDERED: LIDOCAINE 1% P/F 10 MG/ML VIAL ONE (07:16)
[2020-04-15] MEDS ORDERED: NEO/POLYMYX B SULF/DEXAMETH OPHTHALMIC 5ML BOTTLE ONE (07:17)
[2020-04-15] MEDS ORDERED: CARBACHOL 0.01% INTRA-OCULAR 1.5 ML VIAL ONE (07:17)
[2020-04-15] MEDS ORDERED: BSS (NA/CA/MG/K) BALANCED SALT SOLUTION OPHTH SOLN 15 ML BOTTLE ONE (07:17)
[2020-04-15] MEDS ORDERED: EPINEPHrine/PF 1 MG/1 ML (1:1,000) AMPULE ONE (07:18)
[2020-04-15] MEDS ORDERED: LIDOCAINE HCL 2% JELLY 10 ML CARTRIDGE ONE (07:18)
[2020-04-15] MEDS ORDERED: DEXAMETHASONE SOD PHOSPHATE 4 MG/1 ML VIAL ONE (07:47)
[2020-04-15] MEDS ORDERED: ONDANSETRON 4 MG/2 ML VIAL ONE (07:47)
[2020-04-15 08:31] VITALS: TEMP 98
[2020-04-15 09:05] VITALS: BP 131/77; PULSE 69
[2020-04-15] MEDS ORDERED: ACETAMINOPHEN 325 MG TABLET (FP) PO PRN (18:18)
== END 2020-04-15 09:00 | disposition home or self-care (01) ==
LOC: FASU 06:31
PROVIDERS: ATTEND Ophthalmology
PROC: 08RJ3JZ Replacement of Right Lens with Synthetic Substitute, Percutaneous Approach (ICD-10-PCS; principal; 2020-04-15 07:52)
DX: H25.11 Age-related nuclear cataract, right eye (principal); Z88.0 Allergy status to penicillin